=== PATIENT | female | born 1970 | race Hispanic/Latino ===

== ENCOUNTER 2016-07-18 22:09 | Emergency (ER) | payer MEDICAID, OTHER ==
--- NOTE | 2016-07-19 00:32 | XRay Report ---
FINAL REPORT PROCEDURE: XR FOOT 3 RT TECHNIQUE: RIGHT foot radiographs, AP, lateral, and oblique views. CPT 92927 HISTORY: swelling, pain COMPARISON: No prior studies are available for comparison. FINDINGS: Fracture (s) and/or Dislocation(s): None . Alignment: Normal . Joint space(s): Normal . Soft tissues: Normal . Bone mineralization: Normal . Foreign bodies: None . Calcaneal spurring: Large inferior spur. IMPRESSION: There is no evidence of an acute fracture or dislocation.
[2016-07-19 02:56] VITALS: BP 153/85
[2016-07-19] MEDS ORDERED: TORADOL IM ONE (03:07)
[2016-07-19] MEDS ORDERED: NORCO 5/325 PO ONE ×2 (03:07)
--- NOTE | 2016-07-19 03:14 | Emergency Department Report ---
HPI - General Chief Complaint: Extremity Problem,Nontraumatic Time Seen by Provider: 07/19/16 02:58 - HPI HPI: 46-year-old female presents today with right foot pain 1 day. Positive for swelling. Denies injury or trauma. Describes her pain as 10 out of 10 constant ache. Denies numbness, weakness, paresthesias. Patient states that the pain shoots up her leg. Denies fever, chills, nausea, vomiting, chest pain , shortness of breath, abdominal pain. Tried Tylenol No. 3 and ibuprofen without relief, last dose at 8 PM. ED Past Medical Hx - Past Medical History Hx Hypertension: Yes (SINCE 2012) Hx Asthma: Yes Additional medical history: thyroid? - Surgical History Hx Cholecystectomy: Yes Additional Surgical History: Tube ligation - Social History Smoking Status: Current Every Day Smoker Substance Use Type: None - Medications Home Medications: Home Medications Medication Instructions Recorded Confirmed Last Taken Type LORazepam [Ativan] 1 mg PO DAILY 04/13/14 04/29/14 04/28/14 09:00 History Metoprolol [Lopressor TAB] 25 mg PO DAILY 04/13/14 04/29/14 04/29/14 06:00 History HYDROcodone/APAP 10-325 [[place] 1 each PO Q6HR PRN #30 tablet 04/29/14 Unknown Rx 10/325] Ibuprofen [Motrin] 800 mg PO TID PRN #60 tablet 04/29/14 Unknown Rx Acetamin/Codeine 120-12Mg/5 ml 5 ml PO TID PRN #30 ml 07/05/15 Unknown Rx [Tylenol/Codeine] Levofloxacin [Levaquin] 750 mg PO QDAY #10 tablet 07/05/15 Unknown Rx Naproxen [Naprosyn] 500 mg PO BID #30 tablet 07/19/16 Unknown Rx ED Review of Systems ROS: Stated complaint: FOOT PAIN Other details as noted in HPI Constitutional: denies: chills, fever, malaise Eyes: denies: eye pain ENT: denies: ear pain, throat pain, congestion Respiratory: denies: cough, shortness of breath, wheezing Cardiovascular: denies: chest pain, palpitations Endocrine: no symptoms reported Gastrointestinal: denies: abdominal pain, nausea, vomiting Musculoskeletal: joint swelling, arthralgia Neurological: denies: headache, weakness, numbness, paresthesias Physical Exam - Physical Exam Vital Signs: Vital Signs 07/18/16 07/19/16 22:46 02:55 Temperature 98.3 F 98.0 F Pulse Rate 87 81 Respiratory 18 20 Rate Blood Pressure 151/88 Blood Pressure 153/85 [Right] O2 Sat by Pulse 95 96 Oximetry Physical Exam: GENERAL: The patient is well-developed and well-nourished. Patient is in NAD. HEAD: Normocephalic. Atraumatic. CHEST/LUNGS: Clear to auscultation throughout. HEART/CARDIOVASCULAR: Regular rate and rhythm. ABDOMEN: Abdomen is soft, nontender. No guarding or rebound tenderness. RIGHT FOOT: Tenderness to palpation over the mid lateral aspect of right foot. Limited range of motion due to pain. Normal sensation. No change in temperature noted. Peripheral pulses intact. Capillary refill less than 2 seconds. NEURO: Alert and oriented x 3. ED Course Vital Signs 07/18/16 07/19/16 22:46 02:55 Temperature 98.3 F 98.0 F Pulse Rate 87 81 Respiratory 18 20 Rate Blood Pressure 151/88 Blood Pressure 153/85 [Right] O2 Sat by Pulse 95 96 Oximetry ED Medical Decision Making - Lab Data Vital Signs 07/18/16 07/19/16 22:46 02:55 Temperature 98.3 F 98.0 F Pulse Rate 87 81 Respiratory 18 20 Rate Blood Pressure 151/88 Blood Pressure 153/85 [Right] O2 Sat by Pulse 95 96 Oximetry - Radiology Data Radiology results: report reviewed PROCEDURE: XR FOOT 3 RT TECHNIQUE: RIGHT foot radiographs, AP, lateral, and oblique views. CPT 59060 HISTORY: swelling, pain COMPARISON: No prior studies are available for comparison. FINDINGS: Fracture (s) and/or Dislocation(s): None . Alignment: Normal . Joint space(s): Normal . Soft tissues: Normal . Bone mineralization: Normal . Foreign bodies: None . Calcaneal spurring: Large inferior spur. IMPRESSION: There is no evidence of an acute fracture or dislocation. - Medical Decision Making 38-year-old female presents today with right foot pain 1 day. Her x-ray results reveal no evidence of an acute fracture or dislocation, a large inferior calcaneal spur is noted. Patient has been provided with a referral for orthopedic. Patient was given Tyronza and Toradol and reports some symptomatic relief. Patient is in no acute distress at this time. She will be discharged home and is encouraged to follow up with a primary care provider. She will be sent home on Naprosyn and is encouraged to return to the emergency room for any worsening symptoms. Critical care attestation.: If time is entered above; I have spent that time in minutes in the direct care of this critically ill patient, excluding procedure time. ED Disposition Clinical Impression: Foot pain Qualifiers: Laterality: right Qualified Code(s): M79.671 - Pain in right foot Disposition: DISCHARGED TO HOME OR SELFCARE Is pt being admited?: No Does the pt Need Aspirin: No Condition: Stable Instructions: Arthralgia (ED), Foot Sprain (ED) Additional Instructions: Follow-up with primary care provider or orthopedic. Return to the emergency department if symptoms worsen. Prescriptions: Naproxen [Naprosyn] 500 mg PO BID #30 tablet Referrals: MARTHA SCHULZ MD [Primary Care Provider] - 3-5 Days JENNIFER LI MD [Staff Physician] - 3-5 Days [facility] [Outside] - 3-5 Days Forms: Work/School Release Form(ED), Accompanied Note Time of Disposition: 03:16
== END 2016-07-19 03:25 | disposition home or self-care (01) ==
LOC: ED 22:09
DX: M79.671 Pain in right foot (principal); J45.909 Unspecified asthma, uncomplicated; F17.200 Nicotine dependence, unspecified, uncomplicated; Z98.51 Tubal ligation status; I10 Essential (primary) hypertension
CPT/HCPCS: 73630; 96372; 99284; J1885

== ENCOUNTER 2016-10-09 11:58 | Emergency (ER) | payer SELFPAY ==
[2016-10-09 12:28] VITALS: BP 114/77
[2016-10-09] MEDS ORDERED: MORPHINE IM ONE (13:52)
[2016-10-09] MEDS ORDERED: ZOFRAN IM ONE (13:52)
[2016-10-09] MEDS ORDERED: VALIUM PO ONE (13:52)
--- NOTE | 2016-10-09 15:20 | Emergency Department Report ---
ED General Adult HPI - General Chief complaint: Neck Pain/Injury Stated complaint: NECK/HEAD PAIN/UNABLE TO MOVE Time Seen by Provider: 10/09/16 13:51 Source: patient Mode of arrival: Ambulatory Limitations: No Limitations - History of Present Illness Initial comments: 46-year-old female presents to the ED complaining about left-sided neck pain for the past 4 days with unknown injury. Patient states that it is painful to turn her head left but is able to turn her head right. States that she woke up with this pain and is slowly getting worse. Patient denies URI symptoms. States taking [id number] medication with no relief. Severity scale (0 -10): 10 - Related Data Home Medications Medication Instructions Recorded Confirmed Last Taken LORazepam [Ativan] 1 mg PO DAILY 04/13/14 04/29/14 04/28/14 09:00 Metoprolol [Lopressor TAB] 25 mg PO DAILY 04/13/14 04/29/14 04/29/14 06:00 Previous Rx's Medication Instructions Recorded Last Taken Type HYDROcodone/APAP 10-325 [[place] 1 each PO Q6HR PRN #30 tablet 04/29/14 Unknown Rx 10/325] Ibuprofen [Motrin] 800 mg PO TID PRN #60 tablet 04/29/14 Unknown Rx Acetamin/Codeine 120-12Mg/5 ml 5 ml PO TID PRN #30 ml 07/05/15 Unknown Rx [Tylenol/Codeine] Levofloxacin [Levaquin] 750 mg PO QDAY #10 tablet 07/05/15 Unknown Rx Naproxen [Naprosyn] 500 mg PO BID #30 tablet 07/19/16 Unknown Rx Acetaminophen/Codeine [Tylenol 1 tab PO Q6H PRN #10 tab 10/09/16 Unknown Rx /Codeine # 3 tab] Diclofenac Sodium 75 mg PO BID #20 tablet. 10/09/16 Unknown Rx Tizanidine HCl [Zanaflex] 2 mg PO TID PRN #14 capsule 10/09/16 Unknown Rx Allergies Allergy/AdvReac Type Severity Reaction Status Date / Time Penicillins AdvReac Unknown Unknown Verified 04/13/14 15:43 ED Review of Systems ROS: Stated complaint: NECK/HEAD PAIN/UNABLE TO MOVE Other details as noted in HPI Constitutional: denies: chills, fever Eyes: denies: eye pain, eye discharge, vision change ENT: denies: ear pain, throat pain Respiratory: denies: cough, shortness of breath, wheezing Cardiovascular: denies: chest pain, palpitations Endocrine: no symptoms reported Gastrointestinal: denies: abdominal pain, nausea, diarrhea Genitourinary: denies: urgency, dysuria, discharge Musculoskeletal: myalgia. denies: back pain, joint swelling, arthralgia Skin: denies: rash, lesions Neurological: denies: headache, weakness, paresthesias Psychiatric: denies: anxiety, depression Hematological/Lymphatic: denies: easy bleeding, easy bruising ED Past Medical Hx - Past Medical History Hx Hypertension: Yes (SINCE 2012) Hx Asthma: Yes Additional medical history: thyroid? - Surgical History Hx Cholecystectomy: Yes Additional Surgical History: Tube ligation - Social History Smoking Status: Current Every Day Smoker Substance Use Type: None - Medications Home Medications: Home Medications Medication Instructions Recorded Confirmed Last Taken Type LORazepam [Ativan] 1 mg PO DAILY 04/13/14 04/29/14 04/28/14 09:00 History Metoprolol [Lopressor TAB] 25 mg PO DAILY 04/13/14 04/29/14 04/29/14 06:00 History HYDROcodone/APAP 10-325 [[place] 1 each PO Q6HR PRN #30 tablet 04/29/14 Unknown Rx 10/325] Ibuprofen [Motrin] 800 mg PO TID PRN #60 tablet 04/29/14 Unknown Rx Acetamin/Codeine 120-12Mg/5 ml 5 ml PO TID PRN #30 ml 07/05/15 Unknown Rx [Tylenol/Codeine] Levofloxacin [Levaquin] 750 mg PO QDAY #10 tablet 07/05/15 Unknown Rx Naproxen [Naprosyn] 500 mg PO BID #30 tablet 07/19/16 Unknown Rx Acetaminophen/Codeine [Tylenol 1 tab PO Q6H PRN #10 tab 10/09/16 Unknown Rx /Codeine # 3 tab] Diclofenac Sodium 75 mg PO BID #20 tablet. 10/09/16 Unknown Rx Tizanidine HCl [Zanaflex] 2 mg PO TID PRN #14 capsule 10/09/16 Unknown Rx ED Physical Exam - General Limitations: No Limitations General appearance: alert, in no apparent distress - Head Head exam: Present: atraumatic, normocephalic - Eye Eye exam: Present: normal appearance - ENT ENT exam: Present: mucous membranes moist - Neck Neck exam: Present: normal inspection, tenderness (point tenderness to the left cervical region), other (patient able to rotate her head right freely but unable to turn her head left). Absent: meningismus, full ROM - Respiratory Respiratory exam: Present: normal lung sounds bilaterally. Absent: respiratory distress - Cardiovascular Cardiovascular Exam: Present: regular rate, normal rhythm. Absent: systolic murmur, diastolic murmur, rubs, gallop - GI/Abdominal GI/Abdominal exam: Present: soft, normal bowel sounds - Extremities Exam Extremities exam: Present: normal inspection - Back Exam Back exam: Present: normal inspection - Neurological Exam Neurological exam: Present: alert, oriented X3 - Psychiatric Psychiatric exam: Present: normal affect, normal mood - Skin Skin exam: Present: warm, dry, intact, normal color. Absent: rash ED Course Vital Signs 10/09/16 10/09/16 12:23 14:15 Temperature 98.0 F Pulse Rate 87 Respiratory 17 22 Rate Blood Pressure 114/77 O2 Sat by Pulse 94 Oximetry ED Medical Decision Making - Lab Data Vital Signs 10/09/16 10/09/16 12:23 14:15 Temperature 98.0 F Pulse Rate 87 Respiratory 17 22 Rate Blood Pressure 114/77 O2 Sat by Pulse 94 Oximetry - Medical Decision Making Patient is resting comfortable at this time. Patient able to turn her head left and right after morphine and Valium. Patient's symptoms most correlate with torticollis - Differential Diagnosis meningitis Critical care attestation.: If time is entered above; I have spent that time in minutes in the direct care of this critically ill patient, excluding procedure time. ED Disposition Clinical Impression: Acute torticollis Disposition: DISCHARGED TO HOME OR SELFCARE Is pt being admited?: No Does the pt Need Aspirin: No Condition: Good Instructions: Spasmodic Torticollis (ED) Additional Instructions: Alternate ice and heat 20 minutes on 20 minutes off. Take medication as prescribed. Follow-up with orthopedist. Prescriptions: Acetaminophen/Codeine [Tylenol /Codeine # 3 tab] 1 tab PO Q6H PRN #10 tab PRN Reason: Pain Diclofenac Sodium 75 mg PO BID #20 tablet. Tizanidine HCl [Zanaflex] 2 mg PO TID PRN #14 capsule PRN Reason: Muscle Spasm Referrals: PRIMARY CARE, [Primary Care Provider] - 3-5 Days KAY VILLALBA MD [Staff Physician] - 3-5 Days Forms: Work/School Release Form(ED) Time of Disposition: 15:20
== END 2016-10-09 15:48 | disposition home or self-care (01) ==
LOC: ED 11:58
DX: M43.6 Torticollis (principal); I10 Essential (primary) hypertension; J45.909 Unspecified asthma, uncomplicated; F17.200 Nicotine dependence, unspecified, uncomplicated
CPT/HCPCS: 96372; 99282; J2270; J2405

== ENCOUNTER 2017-09-09 21:00 | Emergency (ER) | payer SELFPAY ==
[2017-09-09 22:14] LABS: Bilirubin,Urine NEG (Negative); Blood,Urine NEG (Negative); Color,Urine Yellow (Yellow); Mucus,Urine FEW /HPF; Protein,Urine <15 mg/dL mg/dL (Negative); RBC,Urine < 1.0 /HPF (0.0-6.0); Urobilinogen,Urine < 2.0 mg/dL (<2.0); WBC,Urine < 1.0 /HPF (0.0-6.0)
[2017-09-10] MEDS ORDERED: PERCOCET 5/325 ONE (04:28)
[2017-09-10] MEDS ORDERED: PERCOCET 5/325 PO ONE (04:30)
--- NOTE | 2017-09-10 05:21 | Emergency Department Report ---
ED Back Pain/Injury HPI - General Chief Complaint: Urogenital-Female Stated Complaint: ABDOMINAL PAIN Time Seen by Provider: 09/10/17 05:19 Source: patient, family Limitations: No Limitations - History of Present Illness Initial Comments: Patient reports that she has right flank pain radiating to her back. She reports she has no urinary changes to include darker and stronger odor. Denies any nausea vomiting or diarrhea. Denies any abdominal pain. Denies any fever or chills. Denies any vaginal bleeding. Denies any vaginal discharge. Denies any chest pain or shortness of breath. Patient has a history of asthma, hypertension and she is morbidly obese. She has a history of gallbladder surgery and tubal ligation in the past. Patient says she has a history of slipped disc and she thinks that when she was picking up a child 3 days ago this was triggered her back started hurting. Denies any history of kidney stones or any blood in her urine. Blood pressure is 172/100 and patient is on medication. She says when she is in pain her blood pressure goes up. Pain is 10 out of 10 located to the right flank area. Patient said it feels like spasms she's had in the past. Denies any radiation of pain to her extremities. Denies any loss of bowel or bladder control. She says she took Tylenol and it didn't help her pain so she came to the emergency room. Complaint: back pain Onset/Timin -: days(s) Similar Symptoms Previously: Yes Place: home Radiation: flank Severity: severe Severity scale (0 -10): 10 Quality: aching, other (spasm) Consistency: intermittent Improves With: immobilization Worsens With: movement, walking Context: while lifting Associated Symptoms: other (ports that her urine has a strong odor and it is darker.). denies: confusion, weakness, chest pain, numbness, difficulty walking , cough, difficulty urinating, diaphoresis, incontinence, fever/chills, constipation, headaches, abdominal pain, loss of appetite, malaise, nausea/ vomiting, rash, seizure, shortness of breath, syncope Treatments Prior to Arrival: acetaminophen - Related Data Home Medications Medication Instructions Recorded Confirmed Last Taken LORazepam [Ativan] 1 mg PO DAILY 04/13/14 04/29/14 04/28/14 09:00 Metoprolol [Lopressor TAB] 25 mg PO DAILY 04/13/14 04/29/14 04/29/14 06:00 Previous Rx's Medication Instructions Recorded Last Taken Type HYDROcodone/APAP 10-325 [[place] 1 each PO Q6HR PRN #30 tablet 04/29/14 Unknown Rx 10/325] Ibuprofen [Motrin] 800 mg PO TID PRN #60 tablet 04/29/14 Unknown Rx Acetamin/Codeine 120-12Mg/5 ml 5 ml PO TID PRN #30 ml 07/05/15 Unknown Rx [Tylenol/Codeine] Levofloxacin [Levaquin] 750 mg PO QDAY #10 tablet 07/05/15 Unknown Rx Naproxen [Naprosyn] 500 mg PO BID #30 tablet 07/19/16 Unknown Rx Acetaminophen/Codeine [Tylenol 1 tab PO Q6H PRN #10 tab 10/09/16 Unknown Rx /Codeine # 3 tab] Diclofenac Sodium 75 mg PO BID #20 tablet. 10/09/16 Unknown Rx Tizanidine HCl [Zanaflex] 2 mg PO TID PRN #14 capsule 10/09/16 Unknown Rx Cyclobenzaprine [Flexeril] 10 mg PO TID PRN #12 tablet 09/10/17 Unknown Rx Ibuprofen [Motrin] 600 mg PO Q8H PRN #12 tablet 09/10/17 Unknown Rx Allergies Allergy/AdvReac Type Severity Reaction Status Date / Time Penicillins AdvReac Unknown Unknown Verified 04/13/14 15:43 morphine AdvReac Anaphylaxis Verified 09/09/17 21:17 ED Review of Systems ROS: Stated complaint: ABDOMINAL PAIN Other details as noted in HPI Comment: All other systems reviewed and negative Constitutional: no symptoms reported Eyes: denies: eye pain, vision change ENT: denies: throat pain, epistaxis Respiratory: no symptoms reported Cardiovascular: denies: chest pain, palpitations, dyspnea on exertion, edema, syncope, paroxysmal nocturnal dyspnea Gastrointestinal: denies: abdominal pain, nausea, vomiting, diarrhea, constipation, hematemesis, melena, hematochezia Genitourinary: other (urine with stronger order a darker). denies: urgency, dysuria, frequency, hematuria, discharge Musculoskeletal: back pain. denies: joint swelling, arthralgia, myalgia Skin: denies: rash Neurological: denies: headache, weakness, numbness, paresthesias, confusion, abnormal gait, vertigo ED Past Medical Hx - Past Medical History Medical history: asthma, hypertension thyroid?,pt intubated at [facility] 12/21/2016 when they overdosed her on morphine. Chronic lower back pain. 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 No distress. Alert and acting appropriately. This is a 47-year-old morbidly obese female. Nontoxic in appearance. Lungs: Clear to auscultation bilaterally, no rhonchi wheezes or rales. Skin:Clean,dry and intact, no rashes or lesion. CV: S1, S2. Regular rate and rhythm Extremity: No clubbing, cyanosis or edema. +2 pulses to all extremities and no neurovascular compromise Psych: Normal mood and behavior. Back/Abdomen: Yes Abdominal Tenderness (NTTP in all quadrants. normal bowel sounds. Truncal obesity. No rigidity), No Perithoracic Tenderness, No Perilumbar Tenderness (left lumbar spasm), No Sacroiliac Tenderness, No Flank Tenderness, No Straight Leg Raise Pain Neuro: Yes Normal Sensation, Yes Normal DTR's, Yes Normal Gait, No Motor Weakness ED Course Vital Signs 09/09/17 21:10 Temperature 98.8 F Pulse Rate 86 Respiratory 18 Rate Blood Pressure 172/100 O2 Sat by Pulse 100 Oximetry - Reevaluation(s) Reevaluation #1: 09/10/17 05:36 Patient given Percocet 5/325 mg 2 tablet by mouth which she said helped her pain. She was given Flexeril 10 mg by mouth. Ed Back Pain Tests - Tests Tests: Normal UA ED Medical Decision Making - Lab Data Lab Results 09/09/17 Range/Units Unknown Urine Color Yellow (Yellow) Urine Turbidity Clear (Clear) Urine pH 7.0 (5.0-7.0) Ur Specific [place] 1.020 (1.003-1.030) Urine Protein <15 mg/dl (Negative) mg/dL Urine Glucose (UA) Neg (Negative) mg/dL Urine Ketones Neg (Negative) mg/dL Urine Blood Neg (Negative) Urine Nitrite Neg (Negative) Urine Bilirubin Neg (Negative) Urine Urobilinogen < 2.0 (<2.0) mg/dL Ur Leukocyte Esterase Neg (Negative) Urine WBC (Auto) < 1.0 (0.0-6.0) /HPF Urine RBC (Auto) < 1.0 (0.0-6.0) /HPF U Epithel Cells (Auto) 4.0 (0-13.0) /HPF Urine Mucus Few /HPF - Medical Decision Making ED course: Patient here complaining of left flank pain. She relates that to either urinary tract infection or probably from lifting a child 3 days ago. She said it feels spasm and achy. Physical findings for left lumbar spasm. Urinalysis negative for any infection.Her urine was clear and yellow. Specific gravity is stable. I discussed results with patient and also with diagnosis and treatment plan. Patient was given Percocet 5/325 2 tablets in the emergency room and Flexeril 10 mg for relief of pain. She has a history of chronic back pain with flare up from time to time which included spasm. Neurological exam is normal and her back exam is normal except she has left lumbar spasm without any CVA tenderness. Patient discharged home with prescription for Flexeril and Motrin and to follow-up with her primary care physician and 2-3 days. I discussed with her she doesn't have a primary care physician that she needs follow-up with outside [facility] Center. Her blood pressure was 170/100 and I discussed with her that she needs to keep a log of her blood pressure and take to primary care physician for evaluation. Critical care attestation.: If time is entered above; I have spent that time in minutes in the direct care of this critically ill patient, excluding procedure time. ED Disposition Clinical Impression: Spasm of muscle of lower back, Acute exacerbation of chronic low back pain, Morbid obesity with BMI of 40.0-44.9, adult Disposition: - TO HOME OR SELFCARE Is pt being admited?: No Does the pt Need Aspirin: No Condition: Stable Instructions: Back Pain (ED), Muscle Spasm (ED), Weight Management (ED), Obesity (ED) Additional Instructions: Please see discharge instructions for management of back pain and also weight loss instructions. Increasing her fluid intake. Please do not drive or operate heavy machinery while taking Flexeril as this medication causes drowsiness Follow-up with orthopedic doctor for chronic back pain "Follow[facility]up at [facility] for primary care. Prescriptions: Cyclobenzaprine [Flexeril] 10 mg PO TID PRN #12 tablet PRN Reason: Muscle Spasm Ibuprofen [Motrin] 600 mg PO Q8H PRN #12 tablet PRN Reason: Pain Referrals: [facility] [Outside] - 09/12/17 KAY VILLALBA MD [Staff Physician] - 2-3 Days Forms: Work/School Release Form(ED)
[2017-09-10] MEDS ORDERED: FLEXERIL PO ONE (05:26)
[2017-09-10 06:18] VITALS: BP 173/87
== END 2017-09-10 05:55 | disposition home or self-care (01) ==
LOC: ED 21:00
DX: M54.5 Low back pain (principal); G89.29 Other chronic pain; M62.830 Muscle spasm of back; E66.01 Morbid (severe) obesity due to excess calories; J45.909 Unspecified asthma, uncomplicated; I10 Essential (primary) hypertension; Z90.49 Acquired absence of other specified parts of digestive tract; Z68.41 Body mass index [BMI] 40.0-44.9, adult; Z98.51 Tubal ligation status; Z88.0 Allergy status to penicillin; Z88.5 Allergy status to narcotic agent
CPT/HCPCS: 81001; 99283

== ENCOUNTER 2017-11-12 08:45 | Outpatient (CLI) | payer OTHER ==
[2017-11-12] MEDS ORDERED: PROVENTIL IH ONE (09:55)
== END 2017-11-12 08:46 | disposition home or self-care (01) ==
LOC: PF 08:45
PROVIDERS: ATTEND Internal Medicine
DX: Z02.71 Encounter for disability determination (principal); F41.9 Anxiety disorder, unspecified; I10 Essential (primary) hypertension; E78.00 Pure hypercholesterolemia, unspecified; G47.30 Sleep apnea, unspecified; G43.909 Migraine, unspecified, not intractable, without status migrainosus
CPT/HCPCS: 94060; 94640; 94729

== ENCOUNTER 2018-10-04 20:36 | Emergency (ER) | payer OTHER ==
[2018-10-04 21:15] VITALS: BP 111/72
--- NOTE | 2018-10-04 22:05 | Emergency Department Report ---
Blank Doc - Documentation Documentation: 48 y/o female chest pain, with left arm tingling and recently dx with diabetes. SOB
[2018-10-04 22:18] LABS: Basophils # (Auto) 0.1 K/mm3 (0.0-0.1); Eosinophils # (Auto) 0.4 K/mm3 (0.0-0.4); Eosinophils % (Auto) 2.9 % (0.0-4.3); Hematocrit 52.1 % (30.3-42.9); Hemoglobin 17.6 gm/dl (10.1-14.3); Lymphocytes # (Auto) 2.7 K/mm3 (1.2-5.4); Lymphocytes % (Auto) 22.2 % (13.4-35.0); Mean Corpuscular HGB Conc 34 % (30-34); Mean Corpuscular Volume 96 fl (79-97); Monocytes # (Auto) 0.5 K/mm3 (0.0-0.8); Monocytes % (Auto) 4.1 % (0.0-7.3); Platelet Count 202 K/mm3 (140-440); Red Blood Count 5.41 M/mm3 (3.65-5.03); Red Cell Distribution Width 15.7 % (13.2-15.2)
[2018-10-04 22:40] LABS: Alanine Aminotransferase 29 units/L (7-56); Albumin 3.8 g/dL (3.9-5); BUN/Creatinine Ratio 15; Blood Urea Nitrogen 12 mg/dL (7-17); Calcium 9.9 mg/dL (8.4-10.2); Hemolysis Index 15
--- NOTE | 2018-10-04 23:05 | XRay Report ---
PROCEDURE: XR CHEST ROUTINE 2V TECHNIQUE: PA and lateral chest radiographs were obtained. HISTORY: chest pain and sob COMPARISONS: None. FINDINGS: Heart: Normal. Mediastinum/Vessels: Normal. Lungs/Pleural space: Normal. Bony thorax: No acute osseous abnormality. Degenerative change. IMPRESSION: No acute cardiopulmonary disease. This document is electronically signed by Nhan Tyler MD., Oct 04 2018 11:03:27 PM ET
== END 2018-10-05 01:17 ==
LOC: ED 20:36
DX: R07.89 Other chest pain (principal); Z53.21 Procedure and treatment not carried out due to patient leaving prior to being seen by health care provider
CPT/HCPCS: 36415; 71046; 80053; 84484; 85025; 93005; 93010

== ENCOUNTER 2018-12-04 08:36 | Emergency (ER) | payer SELFPAY ==
[2018-12-04 08:46] VITALS: BP 127/81
[2018-12-04] MEDS ORDERED: TORADOL IM ONE (09:13)
[2018-12-04] MEDS ORDERED: DELTASONE PO ONE (09:13)
--- NOTE | 2018-12-04 09:18 | Emergency Department Report ---
ED ENT HPI - General Chief complaint: Earache Stated complaint: RT EAR PAIN Time Seen by Provider: 12/04/18 09:12 Source: patient Mode of arrival: Ambulatory Limitations: No Limitations - History of Present Illness Initial comments: 48-year-old female comes in for throat pain and ear pain for 2 days. Patient reports that she took an Aleve yesterday. Patient denies any fever chills nausea vomiting. Patient denies any runny nose nasal congestion chest pain shortness of breathing. Patient does complain of difficulty swallowing and worsening pain with swallowing. MD complaint: tooth pain, ear pain Onset/Timin -: days(s) Location: R ear, throat Severity scale (0 -10): 9 Quality: stabbing, sharp Consistency: constant Improves with: none Worsens with: swallowing Associated Symptoms: pain with swallowing, sore throat. denies: fever, cough, gum swelling, toothache, tinnitus, hearing loss, discharge from ear, rhinorrhea - Related Data Home Medications Medication Instructions Recorded Confirmed Last Taken Metoprolol [Lopressor TAB] 25 mg PO DAILY 04/13/14 04/29/14 04/29/14 06:00 Previous Rx's Medication Instructions Recorded Last Taken Type Azithromycin [Zithromax Z-MARIEL] 250 mg PO QDAY #6 tablet 12/04/18 Unknown Rx Ibuprofen [Motrin 800 MG tab] 800 mg PO Q12H PRN #20 tablet 12/04/18 Unknown Rx predniSONE [Deltasone] 40 mg PO QDAY #8 tablet 12/04/18 Unknown Rx Allergies Allergy/AdvReac Type Severity Reaction Status Date / Time Penicillins AdvReac Unknown Unknown Verified 04/13/14 15:43 morphine AdvReac Anaphylaxis Verified 09/09/17 21:17 ED Dental HPI - General Chief complaint: Earache Stated complaint: RT EAR PAIN Time Seen by Provider: 12/04/18 09:12 Source: patient Mode of arrival: Ambulatory Limitations: No Limitations - Related Data Home Medications Medication Instructions Recorded Confirmed Last Taken Metoprolol [Lopressor TAB] 25 mg PO DAILY 04/13/14 04/29/14 04/29/14 06:00 Previous Rx's Medication Instructions Recorded Last Taken Type Azithromycin [Zithromax Z-MARIEL] 250 mg PO QDAY #6 tablet 12/04/18 Unknown Rx Ibuprofen [Motrin 800 MG tab] 800 mg PO Q12H PRN #20 tablet 12/04/18 Unknown Rx predniSONE [Deltasone] 40 mg PO QDAY #8 tablet 12/04/18 Unknown Rx Allergies Allergy/AdvReac Type Severity Reaction Status Date / Time Penicillins AdvReac Unknown Unknown Verified 04/13/14 15:43 morphine AdvReac Anaphylaxis Verified 09/09/17 21:17 ED Review of Systems ROS: Stated complaint: RT EAR PAIN Other details as noted in HPI Comment: All other systems reviewed and negative ED Past Medical Hx - Past Medical History Previous Medical History?: Yes Hx Hypertension: Yes (SINCE 2012) Hx Asthma: Yes Hx COPD: Yes Additional medical history: thyroid?,pt intubated at [facility] 12/21/2016 when they overdosed her on morphine. Chronic lower back pain. Morbid obesity - Surgical History Past Surgical History?: Yes Hx Cholecystectomy: Yes Additional Surgical History: Tube ligation,ablasion - Social History Smoking Status: Current Every Day Smoker Substance Use Type: None - Medications Home Medications: Home Medications Medication Instructions Recorded Confirmed Last Taken Type Metoprolol [Lopressor TAB] 25 mg PO DAILY 04/13/14 04/29/14 04/29/14 06:00 History Azithromycin [Zithromax Z-MARIEL] 250 mg PO QDAY #6 tablet 12/04/18 Unknown Rx Ibuprofen [Motrin 800 MG tab] 800 mg PO Q12H PRN #20 tablet 12/04/18 Unknown Rx predniSONE [Deltasone] 40 mg PO QDAY #8 tablet 12/04/18 Unknown Rx ED Physical Exam - General Limitations: No Limitations General appearance: alert, in no apparent distress - Head Head exam: Present: atraumatic, normocephalic - Eye Eye exam: Present: normal appearance - ENT ENT exam: Present: mucous membranes moist - Expanded ENT Exam Expanded Throat exam: Positive: tonsillar erythema, tonsillomegaly - Respiratory Respiratory exam: Present: normal lung sounds bilaterally. Absent: respiratory distress - Cardiovascular Cardiovascular Exam: Present: regular rate, normal rhythm. Absent: systolic murmur, diastolic murmur, rubs, gallop - Neurological Exam Neurological exam: Present: alert, oriented X3 - Psychiatric Psychiatric exam: Present: normal affect, normal mood - Skin Skin exam: Present: warm, dry, intact, normal color. Absent: rash ED Course Vital Signs 12/04/18 08:45 Temperature 97.9 F Pulse Rate 93 H Respiratory 18 Rate Blood Pressure 127/81 [Right] O2 Sat by Pulse 91 Oximetry ED Medical Decision Making - Medical Decision Making 48-year-old female comes in for sore throat and bilateral ear pain right ear worse. Patient reports difficult to swallowing. Patient be given Toradol injection 30 mg prednisone 40 mg patient be discharged home on azithromycin since patient has a penicillin allergy and ibuprofen. Patient to follow-up to primary care provider for symptoms persist or gets worse. Critical care attestation.: If time is entered above; I have spent that time in minutes in the direct care of this critically ill patient, excluding procedure time. ED Disposition Clinical Impression: Sore throat Disposition: DC-01 TO HOME OR SELFCARE Is pt being admited?: No Does the pt Need Aspirin: No Condition: Stable Instructions: Pharyngitis (ED) Additional Instructions: Treatment antibiotics as prescribed take pain medication as needed take steroids as prescribed. Follow-up primary care provider for some persist or gets worse. Prescriptions: predniSONE [Deltasone] 40 mg PO QDAY #8 tablet Ibuprofen [Motrin 800 MG tab] 800 mg PO Q12H PRN #20 tablet PRN Reason: Pain , Severe (7-10) Azithromycin [Zithromax Z-MARIEL] 250 mg PO QDAY #6 tablet Referrals: JAZMIN SALAZAR MD [Primary Care Provider] - 3-5 Days Forms: Work/School Release Form(ED)
== END 2018-12-04 09:41 | disposition home or self-care (01) ==
LOC: ED 08:36
DX: J02.9 Acute pharyngitis, unspecified (principal); H92.03 Otalgia, bilateral; I10 Essential (primary) hypertension; J44.9 Chronic obstructive pulmonary disease, unspecified; F17.200 Nicotine dependence, unspecified, uncomplicated; Z98.51 Tubal ligation status; Z90.49 Acquired absence of other specified parts of digestive tract; Z88.0 Allergy status to penicillin; Z88.5 Allergy status to narcotic agent
CPT/HCPCS: J1885; J7512; 96372

== ENCOUNTER 2019-02-02 12:38 | Emergency (ER) | payer OTHER ==
[2019-02-02 12:44] VITALS: BP 145/87
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
[2019-02-02] MEDS ORDERED: FLEXERIL PO ONE (13:05)
[2019-02-02] MEDS ORDERED: TORADOL PO ONE (13:05)
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
== END 2019-02-02 13:45 | disposition home or self-care (01) ==
LOC: ED 12:38
DX: S16.1XXA Strain of muscle, fascia and tendon at neck level, initial encounter (principal); R51 Headache; I10 Essential (primary) hypertension; J44.9 Chronic obstructive pulmonary disease, unspecified; F17.200 Nicotine dependence, unspecified, uncomplicated; Z90.49 Acquired absence of other specified parts of digestive tract; Z98.51 Tubal ligation status; Z79.899 Other long term (current) drug therapy; Z88.0 Allergy status to penicillin; Z88.6 Allergy status to analgesic agent; V49.49XA Driver injured in collision with other motor vehicles in traffic accident, initial encounter; Y93.89 Activity, other specified; Y92.410 Unspecified street and highway as the place of occurrence of the external cause; Y99.8 Other external cause status
CPT/HCPCS: 72040

== ENCOUNTER 2020-06-13 19:02 | Emergency (ER) | payer SELFPAY ==
[2020-06-13 19:54] VITALS: BP 147/85
[2020-06-13] MEDS ORDERED: predniSONE 20 MG TAB PO ONE (20:14)
[2020-06-13] MEDS ORDERED: KETOROLAC 60 MG/2 ML INJ IM ONE (20:14)
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
== END 2020-06-13 22:09 | disposition home or self-care (01) ==
LOC: ED 19:02
DX: S16.1XXA Strain of muscle, fascia and tendon at neck level, initial encounter (principal); I10 Essential (primary) hypertension; J44.9 Chronic obstructive pulmonary disease, unspecified; Z88.0 Allergy status to penicillin; Z88.6 Allergy status to analgesic agent; Z79.899 Other long term (current) drug therapy; Z90.49 Acquired absence of other specified parts of digestive tract; Z98.890 Other specified postprocedural states; Z98.51 Tubal ligation status; X58.XXXA Exposure to other specified factors, initial encounter; Y93.89 Activity, other specified; Y92.89 Other specified places as the place of occurrence of the external cause; Y99.8 Other external cause status
CPT/HCPCS: 96372; 99282; J1885; J7512

== ENCOUNTER 2020-06-24 19:21 | Emergency (ER) | payer SELFPAY ==
[2020-06-24] MEDS ORDERED: KETOROLAC 60 MG/2 ML INJ IM ONE (21:53)
[2020-06-24] MEDS ORDERED: dexAMETHasone 20 MG/5 ML VIAL IM ONE (21:53)
--- NOTE | 2020-06-24 21:58 | Emergency Department Report ---
ED Neck Pain/Injury HPI - General Chief Complaint: Neck Pain/Injury Stated Complaint: CHEST PAIN/LEFT SIDE SHOULDER PAIN Time Seen by Provider: 06/24/20 21:48 Mode of arrival: Ambulatory Limitations: No Limitations - History of Present Illness Initial Comments: Patient is a 50-year-old female who is presenting with left neck pain radiating to her left upper extremity. States it is a burning sensation and is estimated at 8 out of 10 in severity. States that it is affecting her left forearm and as well as the deltoid. Is worse with movement better with rest. She denies any injury. Patient was here 2 weeks ago for the same complaint but states that the Flexeril that was given does not work. - Related Data Home Medications Medication Instructions Recorded Confirmed Last Taken Metoprolol [Lopressor TAB] 25 mg PO DAILY 04/13/14 04/29/14 04/29/14 06:00 Previous Rx's Medication Instructions Recorded Last Taken Type Azithromycin [Zithromax Z-MARIEL] 250 mg PO QDAY #6 tablet 12/04/18 Unknown Rx predniSONE [Deltasone] 40 mg PO QDAY #8 tablet 12/04/18 Unknown Rx Cyclobenzaprine [Flexeril] 10 mg PO QHS PRN #7 tablet 02/02/19 Unknown Rx Ibuprofen [Motrin 800 MG tab] 800 mg PO Q8HR PRN #14 tablet 02/02/19 Unknown Rx Cyclobenzaprine [Flexeril] 10 mg PO QHS PRN #10 tablet 06/13/20 Unknown Rx Naproxen 500 mg PO Q12H PRN #12 tablet 06/13/20 Unknown Rx Ketorolac [Toradol] 10 mg PO Q6H PRN #12 tablet 06/24/20 Unknown Rx methOCARBAMOL [Robaxin TAB] 500 mg PO Q6H PRN #14 tablet 06/24/20 Unknown Rx Allergies Allergy/AdvReac Type Severity Reaction Status Date / Time Penicillins AdvReac Unknown Unknown Verified 04/13/14 15:43 morphine AdvReac Anaphylaxis Verified 09/09/17 21:17 ED Review of Systems ROS: Stated complaint: CHEST PAIN/LEFT SIDE SHOULDER PAIN Other details as noted in HPI Comment: All other systems reviewed and negative ED Past Medical Hx - Past Medical History Previous Medical History?: Yes Hx Hypertension: Yes (SINCE 2012) Hx Asthma: Yes Hx COPD: Yes Additional medical history: thyroid?,pt intubated at [facility] 12/21/2016 when they overdosed her on morphine. Chronic lower back pain. Morbid obesity - Surgical History Past Surgical History?: Yes Hx Cholecystectomy: Yes Additional Surgical History: Tube ligation,uterine ablasion - Social History Smoking Status: Former Smoker Substance Use Type: None - Medications Home Medications: Home Medications Medication Instructions Recorded Confirmed Last Taken Type Metoprolol [Lopressor TAB] 25 mg PO DAILY 04/13/14 04/29/14 04/29/14 06:00 History Azithromycin [Zithromax Z-MARIEL] 250 mg PO QDAY #6 tablet 12/04/18 Unknown Rx predniSONE [Deltasone] 40 mg PO QDAY #8 tablet 12/04/18 Unknown Rx Cyclobenzaprine [Flexeril] 10 mg PO QHS PRN #7 tablet 02/02/19 Unknown Rx Ibuprofen [Motrin 800 MG tab] 800 mg PO Q8HR PRN #14 tablet 02/02/19 Unknown Rx Cyclobenzaprine [Flexeril] 10 mg PO QHS PRN #10 tablet 06/13/20 Unknown Rx Naproxen 500 mg PO Q12H PRN #12 tablet 06/13/20 Unknown Rx Ketorolac [Toradol] 10 mg PO Q6H PRN #12 tablet 06/24/20 Unknown Rx methOCARBAMOL [Robaxin TAB] 500 mg PO Q6H PRN #14 tablet 06/24/20 Unknown Rx ED Physical Exam - General Limitations: No Limitations General appearance: alert, in no apparent distress - Head Head exam: Present: atraumatic, normocephalic - Eye Eye exam: Present: normal appearance - ENT ENT exam: Present: mucous membranes moist - Neck Neck exam: Present: normal inspection, tenderness (left sided without swelling). Absent: lymphadenopathy - Respiratory Respiratory exam: Present: normal lung sounds bilaterally. Absent: respiratory distress, wheezes, rales, rhonchi - Cardiovascular Cardiovascular Exam: Present: regular rate, normal rhythm. Absent: systolic murmur, diastolic murmur, rubs, gallop - GI/Abdominal GI/Abdominal exam: Present: soft, normal bowel sounds - Extremities Exam Extremities exam: Present: normal inspection - Back Exam Back exam: Present: normal inspection - Neurological Exam Neurological exam: Present: alert, oriented X3 - Psychiatric Psychiatric exam: Present: normal affect, normal mood - Skin Skin exam: Present: warm, dry, intact, normal color. Absent: rash ED Course Vital Signs 06/24/20 20:41 Temperature 98.1 F Pulse Rate 129 H Respiratory 18 Rate Blood Pressure 141/105 O2 Sat by Pulse 92 Oximetry ED Medical Decision Making - Medical Decision Making Patient with classic symptoms of radiculopathy. Patient to be given a shot of Decadron and will be discharged home with medication for symptomatic relief follow-up with [facility] Critical care attestation.: If time is entered above; I have spent that time in minutes in the direct care of this critically ill patient, excluding procedure time. ED Disposition Clinical Impression: Cervical radiculopathy Disposition: - TO HOME OR SELFCARE Is pt being admited?: No Does the pt Need Aspirin: No Condition: Stable Instructions: Cervical Radiculopathy, How to Use Cold Therapy Referrals: OPAL GOMEZ II, MD [Staff Physician] - 3-5 Days Time of Disposition: 21:58
[2020-06-24 22:13] VITALS: BP 132/94
--- NOTE | 2020-06-24 22:53 | XRay Report ---
CHEST 2 VIEWS INDICATION / CLINICAL INFORMATION: CHEST PAIN. COMPARISON: 10/04/2018 FINDINGS: SUPPORT DEVICES: None. HEART / MEDIASTINUM: No significant abnormality. LUNGS / PLEURA: No significant pulmonary or pleural abnormality. No pneumothorax. ADDITIONAL FINDINGS: No significant additional findings. IMPRESSION: 1. No acute findings. No significant interval change since 10/04/2018. Signer Name: Jason Murdock MD Signed: 06/24/2020 10:48 PM Workstation Name: [id number]
== END 2020-06-24 22:30 | disposition home or self-care (01) ==
LOC: ED 19:21
DX: M54.12 Radiculopathy, cervical region (principal); I10 Essential (primary) hypertension; J45.909 Unspecified asthma, uncomplicated; J44.9 Chronic obstructive pulmonary disease, unspecified; Z90.49 Acquired absence of other specified parts of digestive tract; Z98.51 Tubal ligation status; Z87.891 Personal history of nicotine dependence; Z79.899 Other long term (current) drug therapy; Z88.0 Allergy status to penicillin; Z88.6 Allergy status to analgesic agent
CPT/HCPCS: 71046; 96372; 99283; J1100; J1885

== ENCOUNTER 2021-08-17 12:56 | Emergency (ER) | payer OTHER ==
[2021-08-17] MEDS ORDERED: diphenhydrAMINE 25 MG CAP PO ONE (17:38)
[2021-08-17] MEDS ORDERED: METOCLOPRAMIDE 10 MG TAB PO ONE (17:38)
[2021-08-17] MEDS ORDERED: DEXAMETHASONE 4 MG TAB PO ONE (17:38)
[2021-08-17] MEDS ORDERED: KETOROLAC 10 MG TAB PO ONE (17:38)
--- NOTE | 2021-08-17 18:56 | Emergency Department Report ---
ED Headache HPI - General Chief Complaint: Headache Stated Complaint: SWOLLEN HANDS AND HEADACHE Time Seen by Provider: 08/17/21 17:31 - History of Present Illness Initial Comments: 51-year-old white female with a past medical history of hypertension, diabetes, and hypothyroidism presents to the emergency department for evaluation of headache. She states that she woke up this morning with a headache and some neck pain. She denies injury, vomiting, vision changes, and dizziness. She states that she has had some intermittent nausea today along with some photophobia. She also complains of intermittent swelling to her hands for the past 2 to 3 days. She denies any abdominal swelling or shortness of breath. Timing/Duration: other Quality: severe (Today) Head Injury Location: frontal Recent Head Trauma: occasional headaches Modifying Factors: improves with: exposure to light Associated Symptoms: nausea/vomiting. denies: confusion, fatigue, facial pain, fever/chills, flushing, loss of consciousness, nasal congestion, nasal drainage, numbness in legs/feet, rash, seizures, sinus infection, stiff neck, vision changes, weakness Allergies/Adverse Reactions: Allergies Penicillins Adverse Reaction (Unknown, Verified 04/13/14 15:43) Unknown morphine Adverse Reaction (Verified 09/09/17 21:17) Anaphylaxis Home Medications: Ambulatory Orders Metoprolol [Lopressor TAB] 25 mg PO DAILY 04/13/14 Azithromycin [Zithromax Z-MARIEL] 250 mg PO QDAY #6 tablet 12/04/18 predniSONE [Deltasone] 40 mg PO QDAY #8 tablet 12/04/18 Cyclobenzaprine [Flexeril] 10 mg PO QHS PRN #7 tablet 02/02/19 Ibuprofen [Motrin 800 MG tab] 800 mg PO Q8HR PRN #14 tablet 02/02/19 Cyclobenzaprine [Flexeril] 10 mg PO QHS PRN #10 tablet 06/13/20 Ketorolac [Toradol] 10 mg PO Q6H PRN #12 tablet 06/24/20 methOCARBAMOL [Robaxin TAB] 500 mg PO Q6H PRN #14 tablet 06/24/20 Baclofen 20 mg PO Q12H PRN #20 tablet 05/24/21 Clindamycin [Clindamycin CAP] 300 mg PO Q6H #40 capsule 05/24/21 Gabapentin 300 mg PO QHS #30 cap 05/24/21 Naproxen 500 mg PO Q12H PRN #30 tablet 05/24/21 predniSONE [Deltasone] 40 mg PO QDAY #10 tab 05/24/21 Butalb/Acetaminophen/Caffeine [Fioricet 50-300-40 mg CAP] 1 cap PO Q6HR PRN #12 cap 08/17/21 ED Review of Systems ROS: Stated complaint: SWOLLEN HANDS AND HEADACHE Other details as noted in HPI Comment: All other systems reviewed and negative Constitutional: denies: chills, diaphoresis Eyes: denies: eye pain, eye discharge, vision change ENT: denies: throat pain, hearing loss, epistaxis, congestion Respiratory: denies: cough, shortness of breath, SOB with exertion, SOB at rest Cardiovascular: denies: chest pain, palpitations, dyspnea on exertion, orthopnea, edema, syncope, paroxysmal nocturnal dyspnea Gastrointestinal: denies: abdominal pain, nausea, vomiting, diarrhea, hematemesis, melena, hematochezia Genitourinary: denies: urgency, dysuria, frequency, hematuria Musculoskeletal: denies: back pain Skin: other (Swelling to bilateral hands). denies: rash, lesions Neurological: headache. denies: weakness, numbness, paresthesias, confusion, abnormal gait, vertigo Psychiatric: denies: anxiety, depression ED Past Medical Hx - Past Medical History Hx Hypertension: Yes (SINCE 2012) Hx Asthma: Yes Hx COPD: Yes Additional medical history: thyroid?,pt intubated at [facility] 12/21/2016 when they overdosed her on morphine. Chronic lower back pain. Morbid obesity - Surgical History Hx Cholecystectomy: Yes Additional Surgical History: Tube ligation,uterine ablasion - Social History Smoking Status: Former Smoker Substance Use Type: None - Medications Home Medications: Home Medications Medication Instructions Recorded Confirmed Last Taken Type Metoprolol [Lopressor TAB] 25 mg PO DAILY 04/13/14 04/29/14 04/29/14 06:00 History Azithromycin [Zithromax Z-MARIEL] 250 mg PO QDAY #6 tablet 12/04/18 Unknown Rx predniSONE [Deltasone] 40 mg PO QDAY #8 tablet 12/04/18 Unknown Rx Cyclobenzaprine [Flexeril] 10 mg PO QHS PRN #7 tablet 02/02/19 Unknown Rx Ibuprofen [Motrin 800 MG tab] 800 mg PO Q8HR PRN #14 tablet 02/02/19 Unknown Rx Cyclobenzaprine [Flexeril] 10 mg PO QHS PRN #10 tablet 06/13/20 Unknown Rx Ketorolac [Toradol] 10 mg PO Q6H PRN #12 tablet 06/24/20 Unknown Rx methOCARBAMOL [Robaxin TAB] 500 mg PO Q6H PRN #14 tablet 06/24/20 Unknown Rx Baclofen 20 mg PO Q12H PRN #20 tablet 05/24/21 Unknown Rx Clindamycin [Clindamycin CAP] 300 mg PO Q6H #40 capsule 05/24/21 Unknown Rx Gabapentin 300 mg PO QHS #30 cap 05/24/21 Unknown Rx Naproxen 500 mg PO Q12H PRN #30 tablet 05/24/21 Unknown Rx predniSONE [Deltasone] 40 mg PO QDAY #10 tab 05/24/21 Unknown Rx Butalb/Acetaminophen/Caffeine 1 cap PO Q6HR PRN #12 cap 08/17/21 Unknown Rx [Fioricet 50-300-40 mg CAP] ED Physical Exam - General Limitations: No Limitations General appearance: alert, in no apparent distress - Head Head exam: Present: atraumatic, normocephalic - Eye Eye exam: Present: normal appearance. Absent: conjunctival injection - Neck Neck exam: Present: normal inspection, tenderness, full ROM. Absent: lymphadenopathy - Respiratory Respiratory exam: Present: normal lung sounds bilaterally. Absent: respiratory distress, wheezes, rales, rhonchi, stridor, chest wall tenderness - Cardiovascular Cardiovascular Exam: Present: tachycardia, normal heart sounds - GI/Abdominal GI/Abdominal exam: Present: soft, normal bowel sounds. Absent: distended, tenderness, guarding, rebound, rigid - Extremities Exam Extremities exam: Present: normal inspection - Expanded Upper Extremity Exam Left Hand Wrist exam: Present: swelling (Trace to 1+). Absent: tenderness, ecchymosis, deformity, crepidus, dislocation, erythema Vascular: Present: normal capillary refill, radial pulse. Absent: vascular compromise Right Hand Wrist exam: Present: swelling (Trace to 1+). Absent: ecchymosis, deformity, crepidus, dislocation, erythema Vascular: Present: normal capillary refill. Absent: vascular compromise, pulse deficit radial art - Back Exam Back exam: Present: normal inspection. Absent: tenderness - Neurological Exam Neurological exam: Present: alert, oriented X3, CN II-XII intact, normal gait, reflexes normal. Absent: motor sensory deficit - Expanded Neurological Exam Expanded Patient oriented to: Present: person, place, time Speech: Present: fluid speech Cranial nerves: EOM's Intact: Normal, Tongue Deviation: Normal, Facial Sensation: Normal Motor strength exam: RUE: 5, LUE: 5, RLE: 5, LLE: 5 Best Eye Response ([place]): (4) open spontaneously Best Motor Response ([place]): (6) obeys commands Best Verbal Response ([place]): (5) oriented [place] Total: 15 - Psychiatric Psychiatric exam: Present: normal affect, normal mood - Skin Skin exam: Present: warm, dry, intact, normal color ED Course Vital Signs 08/17/21 08/17/21 13:58 19:37 Temperature 98.4 F 98.5 F Pulse Rate 118 H 105 H Respiratory 18 16 Rate Blood Pressure 134/89 Blood Pressure 121/77 [Left] O2 Sat by Pulse 96 96 Oximetry - Reevaluation(s) Reevaluation #1: 08/17/21 18:52 Headache resolved ED Medical Decision Making - Medical Decision Making 51-year-old white female with a past medical history of hypertension, diabetes, and hypothyroidism presents to the emergency department for evaluation of headache. She states that she woke up this morning with a headache and some neck pain. She denies injury, vomiting, vision changes, and dizziness. She states that she has had some intermittent nausea today along with some photophobia. She also complains of intermittent swelling to her hands for the past 2 to 3 days. She denies any abdominal swelling or shortness of breath. Headache resolved after medication. Patient noted to have trace edema to bilateral hands. No swelling noted to ankles, no ascites noted, no JVD noted, no sclerotic uterus noted and patient denies shortness of breath, low suspicion for she is advised to follow-up with primary care provider for further evaluation and management, and return to the emergency department for any concerning symptoms. Critical care attestation.: If time is entered above; I have spent that time in minutes in the direct care of this critically ill patient, excluding procedure time. ED Disposition Clinical Impression: Bilateral hand swelling Headache Qualifiers: Headache type: unspecified Headache chronicity pattern: acute headache Intractability: not intractable Qualified Code(s): R51.9 - Headache, unspecified Disposition: 01 HOME / SELF CARE / HOMELESS Is pt being admited?: No Does the pt Need Aspirin: No Condition: Stable Instructions: General Headache Without Cause, Edema Additional Instructions: Take medications as prescribed follow-up with primary care provider for further evaluation and management. Return to the emergency department for any worsening symptoms. Prescriptions: Butalb/Acetaminophen/Caffeine [Fioricet 50-300-40 mg CAP] 1 cap PO Q6HR PRN #12 cap PRN Reason: Headache Referrals: ALICE BROUSSARD MD [Primary Care Provider] - 3-5 Days Time of Disposition: 18:56
[2021-08-17 19:39] VITALS: BP 121/77
== END 2021-08-17 19:40 | disposition home or self-care (01) ==
LOC: ED 12:56
DX: M79.89 Other specified soft tissue disorders (principal); M25.441 Effusion, right hand; R51.9 Headache, unspecified; I10 Essential (primary) hypertension; J45.909 Unspecified asthma, uncomplicated; Z90.49 Acquired absence of other specified parts of digestive tract; Z87.891 Personal history of nicotine dependence
CPT/HCPCS: 99282; J8540

== ENCOUNTER 2021-10-20 16:52 | Emergency (ER) | payer OTHER ==
[2021-10-20] MEDS ORDERED: dexAMETHasone 20 MG/5 ML VIAL IV ONE (23:03)
[2021-10-20] MEDS ORDERED: KETOROLAC 30 MG/1 ML INJ IV ONE (23:03)
[2021-10-20] MEDS ORDERED: SODIUM CHLORIDE 0.9% 1000 ML 1,000 ML IV ONE (23:04)
[2021-10-20 23:26] LABS: Basophils # (Auto) 0.1 K/mm3 (0.0-0.1); Basophils % (Auto) 0.7 % (0.0-1.8); Eosinophils # (Auto) 0.1 K/mm3 (0.0-0.4); Eosinophils % (Auto) 1.4 % (0.0-4.3); Hematocrit 40.3 % (30.3-42.9); Hemoglobin 13.3 gm/dl (10.1-14.3); Lymphocytes # (Auto) 2.7 K/mm3 (1.2-5.4); Lymphocytes % (Auto) 28.4 % (13.4-35.0); Mean Corpuscular HGB Conc 33 % (30-34); Mean Corpuscular Volume 92 fl (79-97); Monocytes # (Auto) 0.5 K/mm3 (0.0-0.8); Monocytes % (Auto) 5.2 % (0.0-7.3); Platelet Count 293 K/mm3 (140-440); Red Blood Count 4.41 M/mm3 (3.65-5.03); Red Cell Distribution Width 13.7 % (13.2-15.2)
[2021-10-20 23:43] LABS: Erythrocyte Sedimentation Rate 82 mm/Hr (0-20)
[2021-10-20 23:44] LABS: Alanine Aminotransferase 24 units/L (7-56); Albumin 3.9 g/dL (3.9-5); Blood Urea Nitrogen 13 mg/dL (7-17); Calcium 9.5 mg/dL (8.4-10.2); Hemolysis Index 12
[2021-10-20 23:52] LABS: BUN/Creatinine Ratio 22
[2021-10-21] MEDS ORDERED: SODIUM CHLORIDE 0.9% 1000 ML 1,000 ML IV ONE (00:38)
--- NOTE | 2021-10-21 01:53 | Emergency Department Report ---
ED Extremity Problem HPI - General Chief complaint: Extremity Injury, Upper Stated complaint: SWOLLEN HANDS NECK/CHEST PAIN Source: patient Mode of arrival: Ambulatory Limitations: No Limitations - History of Present Illness Initial comments: Patient is a 51-year-old female with a history of hypertension, rnr-cyhevbt-hceafbrac diabetes, chronic rheumatoid arthritis, asthma, COPD, morbid obesity and chronic low back pain who presents to the ED with complaint of acute exacerbation of her chronic pain characterized by bilateral shoulder, bilateral hand and wrist pain with swelling for the last 2 weeks, worse in the last 3 days. Patient states that she is unable to perform any active range of motion of the upper extremities because of worsening pain in the shoulders. Patient states that the pain is constant and persistent and that she is unable to sleep because of constant pain. Patient denies fall, traumatic injury, heavy lifting, nausea and vomiting, chest pain, shortness of breath, neck pain, back pain, abdominal pain, fever and chills. MD Complaint: extremity pain (Bilateral shoulder, wrist and hand pains with swelling), extremity swelling, joint swelling, joint paint -: Gradual, year(s) (1), unknown (chronic rheumatoid arthritis) Location: upper extremity (bilateral shoulders, hands and wrist pain and swelling) History of Same: Yes (chronic rheumatoid arthritis) -: Yes arthralgia, No fever, No associated dyspnea, No associated chest pain Radiation: distal Severity scale (0 -10): 8 Quality: aching, sharp Consistency: constant Improves with: nothing Worsens with: weight bearing, walking, exertion, palpation Associated Symptoms: denies other symptoms, myalgias, arthralgias. denies: chest pain, shortness of breath, fever, rash, other - Related Data Home Medications Medication Instructions Recorded Confirmed Last Taken Metoprolol [Lopressor TAB] 25 mg PO DAILY 04/13/14 04/29/14 04/29/14 06:00 Previous Rx's Medication Instructions Recorded Last Taken Type Azithromycin [Zithromax Z-MARIEL] 250 mg PO QDAY #6 tablet 12/04/18 Unknown Rx Cyclobenzaprine [Flexeril] 10 mg PO QHS PRN #7 tablet 02/02/19 Unknown Rx Cyclobenzaprine [Flexeril] 10 mg PO QHS PRN #10 tablet 06/13/20 Unknown Rx Ketorolac [Toradol] 10 mg PO Q6H PRN #12 tablet 06/24/20 Unknown Rx Baclofen 20 mg PO Q12H PRN #20 tablet 05/24/21 Unknown Rx Clindamycin [Clindamycin CAP] 300 mg PO Q6H #40 capsule 05/24/21 Unknown Rx Naproxen 500 mg PO Q12H PRN #30 tablet 05/24/21 Unknown Rx predniSONE [Deltasone] 40 mg PO QDAY #10 tab 05/24/21 Unknown Rx Butalb/Acetaminophen/Caffeine 1 cap PO Q6HR PRN #12 cap 08/17/21 Unknown Rx [Fioricet 50-300-40 mg CAP] Gabapentin 300 mg PO BID #60 cap 10/21/21 Unknown Rx Ibuprofen [Motrin 800 MG tab] 800 mg PO Q8HR PRN #40 tablet 10/21/21 Unknown Rx methOCARBAMOL [Robaxin TAB] 500 mg PO Q8H PRN #30 tablet 10/21/21 Unknown Rx predniSONE [Deltasone] 40 mg PO QDAY #10 tablet 10/21/21 Unknown Rx Allergies Allergy/AdvReac Type Severity Reaction Status Date / Time Penicillins AdvReac Unknown Unknown Verified 04/13/14 15:43 morphine AdvReac Anaphylaxis Verified 09/09/17 21:17 ED Review of Systems ROS: Stated complaint: SWOLLEN HANDS NECK/CHEST PAIN Other details as noted in HPI Constitutional: denies: chills, fever Eyes: denies: eye pain, eye discharge, vision change ENT: denies: ear pain, throat pain Respiratory: denies: cough, orthopnea, shortness of breath, wheezing Cardiovascular: denies: chest pain, palpitations Endocrine: no symptoms reported Gastrointestinal: denies: abdominal pain, nausea, vomiting, diarrhea Genitourinary: denies: urgency, dysuria, discharge Musculoskeletal: joint swelling, arthralgia (bilateral shoulder, wrist and hand pain and swelling). denies: back pain, myalgia Skin: denies: rash, lesions Neurological: denies: headache, weakness, paresthesias Psychiatric: denies: anxiety, depression Hematological/Lymphatic: denies: easy bleeding, easy bruising ED Past Medical Hx - Past Medical History Hx Hypertension: Yes (SINCE 2012) Hx Diabetes: Yes Hx Arthritis: Yes (rheumatoid arthritis) Hx Asthma: Yes Hx COPD: Yes Additional medical history: thyroid?,pt intubated at [facility] 12/21/2016 when they overdosed her on morphine. Chronic lower back pain. Morbid obesity - Surgical History Hx Cholecystectomy: Yes Additional Surgical History: Tube ligation,uterine ablasion - Social History Smoking Status: Former Smoker Substance Use Type: None - Medications Home Medications: Home Medications Medication Instructions Recorded Confirmed Last Taken Type Metoprolol [Lopressor TAB] 25 mg PO DAILY 04/13/14 04/29/14 04/29/14 06:00 History Azithromycin [Zithromax Z-MARIEL] 250 mg PO QDAY #6 tablet 12/04/18 Unknown Rx Cyclobenzaprine [Flexeril] 10 mg PO QHS PRN #7 tablet 02/02/19 Unknown Rx Cyclobenzaprine [Flexeril] 10 mg PO QHS PRN #10 tablet 06/13/20 Unknown Rx Ketorolac [Toradol] 10 mg PO Q6H PRN #12 tablet 06/24/20 Unknown Rx Baclofen 20 mg PO Q12H PRN #20 tablet 05/24/21 Unknown Rx Clindamycin [Clindamycin CAP] 300 mg PO Q6H #40 capsule 05/24/21 Unknown Rx Naproxen 500 mg PO Q12H PRN #30 tablet 05/24/21 Unknown Rx predniSONE [Deltasone] 40 mg PO QDAY #10 tab 05/24/21 Unknown Rx Butalb/Acetaminophen/Caffeine 1 cap PO Q6HR PRN #12 cap 08/17/21 Unknown Rx [Fioricet 50-300-40 mg CAP] Gabapentin 300 mg PO BID #60 cap 10/21/21 Unknown Rx Ibuprofen [Motrin 800 MG tab] 800 mg PO Q8HR PRN #40 tablet 10/21/21 Unknown Rx methOCARBAMOL [Robaxin TAB] 500 mg PO Q8H PRN #30 tablet 10/21/21 Unknown Rx predniSONE [Deltasone] 40 mg PO QDAY #10 tablet 10/21/21 Unknown Rx ED Physical Exam - General Limitations: No Limitations General appearance: alert, in no apparent distress - Head Head exam: Present: atraumatic, normocephalic, normal inspection - Eye Eye exam: Present: normal appearance, PERRL, EOMI Pupils: Present: normal accommodation - ENT ENT exam: Present: normal exam, normal orophraynx, mucous membranes moist, TM's normal bilaterally, normal external ear exam - Neck Neck exam: Present: normal inspection, full ROM. Absent: tenderness - Respiratory Respiratory exam: Present: normal lung sounds bilaterally. Absent: respiratory distress, wheezes, rales, rhonchi, chest wall tenderness, accessory muscle use - Cardiovascular Cardiovascular Exam: Present: regular rate, normal rhythm, normal heart sounds. Absent: systolic murmur, diastolic murmur, rubs, gallop - GI/Abdominal GI/Abdominal exam: Present: soft, normal bowel sounds. Absent: tenderness, guarding, rebound, hyperactive bowel sounds, hypoactive bowel sounds, organomegaly, mass - Extremities Exam Extremities exam: Present: normal inspection, tenderness (Palpable bilateral shoulder, hand and wrist tenderness with limited ROM due to pain; Mild swelling of bilateral hands and fingers), normal capillary refill, joint swelling. Absent: pedal edema, calf tenderness - Back Exam Back exam: Present: normal inspection, full ROM. Absent: tenderness, CVA tenderness (R), CVA tenderness (L), muscle spasm, paraspinal tenderness, vertebr al tenderness - Neurological Exam Neurological exam: Present: alert, oriented X3, CN II-XII intact, normal gait, reflexes normal - Psychiatric Psychiatric exam: Present: normal affect, normal mood - Skin Skin exam: Present: warm, dry, intact, normal color. Absent: rash ED Course Vital Signs 10/20/21 10/20/21 17:07 19:28 Temperature 89.1 F L 98.1 F Pulse Rate 91 H Respiratory 16 Rate Blood Pressure 145/79 [Left] O2 Sat by Pulse 96 Oximetry ED Medical Decision Making - Lab Data Result diagrams: 10/20/21 23:07 10/20/21 23:07 - Medical Decision Making This is a 51-year-old female with a history of hypertension, mwr-flpbwaw-uozitmxbg diabetes, chronic rheumatoid arthritis, asthma, COPD, morbid obesity and chronic low back pain who presents to the ED with complaint of acute exacerbation of her chronic pain characterized by bilateral shoulder, bilateral hand and wrist pain with swelling for the last 2 weeks, worse in the last 3 days. Patient states that she is unable to perform any active range of motion of the upper extremities because of worsening pain in the shoulders. Patient states that the pain is constant and persistent and that she is unable to sleep because of constant pain. In the ED, patient is alert and oriented x3 and is not in any distress. Patient was treated for pain in the ED. patient also received normal saline 2 L IV bolus x1. Lab test results were reviewed and are all nonactionable except for hyperglycemia of 305 mg/dL and mild hyponatremia of 134 mmol/L. On reevaluation, patient's pain is well controlled with medication. Patient was discharged home on pain medications and advised to follow-up with her primary care physician in 7 to 10 days for reevaluation or return to the ED immediately if symptoms get worse. - Differential Diagnosis rheumatoid arthritis; chronic pain; tendonitis; bursitis; muscle strains Critical care attestation.: If time is entered above; I have spent that time in minutes in the direct care of this critically ill patient, excluding procedure time. ED Disposition Clinical Impression: Chronic polyarticular juvenile rheumatoid arthritis, Chronic pain syndrome, Bilateral shoulder bursitis Shoulder tendonitis Qualifiers: Laterality: unspecified laterality Qualified Code(s): M77.8 - Other enthesopathies, not elsewhere classified Hyperglycemia due to type 2 diabetes mellitus Qualifiers: Diabetes mellitus usp insulin use: without usp use Qualified Code(s): E11.65 - Type 2 diabetes mellitus with hyperglycemia Disposition: 01 HOME / SELF CARE / HOMELESS Is pt being admited?: No Does the pt Need Aspirin: No Condition: Stable Instructions: Bursitis, Wdhb-[id number], Arthritis, Gszw-ix-[id number], Shoulder Impingement Syndrome, Diabetes Mellitus Type 2 in Adults (ED), Pain Medicine Instructions, Fkfa-bt-[id number], Type 2 Diabetes Mellitus, Self Care, Adult, Uchy-uc-Vwkp Additional Instructions: [place] los medicamentos con alimentos, kailey muchos lquidos y errol un seguimiento con hurd mdico de atencin primaria en 7 a 10 patrick para jeison reevaluacin. Regrese al servicio de urgencias inmediatamente si los sntomas empeoran. Prescriptions: predniSONE [Deltasone] 40 mg PO QDAY #10 tablet Gabapentin 300 mg PO BID #60 cap Ibuprofen [Motrin 800 MG tab] 800 mg PO Q8HR PRN #40 tablet PRN Reason: pain methOCARBAMOL [Robaxin TAB] 500 mg PO Q8H PRN #30 tablet PRN Reason: Muscle Spasm Referrals: [facility] [Provider Group] - 7-10 days Time of Disposition: 01:56 Print Language: ROMANIAN
[2021-10-21 02:40] VITALS: BP 149/86
== END 2021-10-21 03:07 | disposition home or self-care (01) ==
LOC: ED 16:52
DX: M77.8 Other enthesopathies, not elsewhere classified (principal); M08.40 Pauciarticular juvenile rheumatoid arthritis, unspecified site; M75.52 Bursitis of left shoulder; M75.51 Bursitis of right shoulder; G89.4 Chronic pain syndrome; M54.9 Dorsalgia, unspecified; E11.65 Type 2 diabetes mellitus with hyperglycemia; I10 Essential (primary) hypertension; J44.9 Chronic obstructive pulmonary disease, unspecified; E66.01 Morbid (severe) obesity due to excess calories; Z98.890 Other specified postprocedural states; Z87.891 Personal history of nicotine dependence; Z88.0 Allergy status to penicillin; Z88.5 Allergy status to narcotic agent
CPT/HCPCS: 36415; 80053; 84484; 85025; 85652; 93005; 96361; 96374; 96375; 99283; J1100; J1885; J7030

== ENCOUNTER 2021-12-01 19:43 | Emergency (ER) | payer OTHER ==
[2021-12-02] MEDS ORDERED: oxyCODONE /ACETAMINOPHEN 5-325MG TAB PO ONE (00:38)
[2021-12-02] MEDS ORDERED: IBUPROFEN 600 MG TAB PO ONE (00:38)
[2021-12-02] MEDS ORDERED: predniSONE 20 MG TAB PO ONE (00:38)
[2021-12-02] MEDS ORDERED: ONDANSETRON 4 MG ODT TAB PO ONE (00:38)
--- NOTE | 2021-12-02 01:30 | Emergency Department Report ---
ED General Adult HPI - General Chief complaint: Fall Stated complaint: FELL HANDS/FEET SWOLLEN Source: patient Mode of arrival: Ambulatory Limitations: No Limitations - History of Present Illness Initial comments: Patient is a 51-year-old female with a history of hypertension, chronic osteoarthritis, chronic low back pain and zjf-sjemomv-hgboenyjw diabetes who presents to the ED with complaint of acute exacerbation of her chronic pain characterized by persistent low back pain that radiates to the left leg, left upper arm pain and bilateral wrist, hand and ankle pain with mild swelling in the joints for the last 1 month, worse in the last 2 days. Patient states that she slipped and fell about 8 hours ago and landed on her left arm and that her pain has worsened since that fall. Patient however states that the pain is worse with movement. Patient states that she has not taken any medications for pain. Patient denies dizziness, syncope, seizures, head or neck injuries, abdominal pain, chest pain, shortness of breath, nausea and vomiting, loss of consciousness, numbness and tingling or weakness of upper and lower extremities bilaterally. MD Complaint: Diffuse body aches and pains, low back pain, polyarticular joint pains -: Gradual, month(s) (1) Location: back (LOWER), upper extremity (Bilateral hands, wrists), lower extremity (Bilateral ankles, knees and feet) Radiation: extremity (Left leg) Severity scale (0 -10): 8 Quality: aching, sharp Consistency: constant Improves with: none Worsens with: movement Associated Symptoms: denies other symptoms. denies: confusion, chest pain, cough, diaphoresis, fever/chills, headaches, loss of appetite, malaise, nausea/vomiting, rash, seizure, shortness of breath, syncope, weakness Treatments Prior to Arrival: none - Related Data Home Medications Medication Instructions Recorded Confirmed Last Taken Metoprolol [Lopressor TAB] 25 mg PO DAILY 04/13/14 04/29/14 04/29/14 06:00 Previous Rx's Medication Instructions Recorded Last Taken Type Azithromycin [Zithromax Z-MARIEL] 250 mg PO QDAY #6 tablet 12/04/18 Unknown Rx Cyclobenzaprine [Flexeril] 10 mg PO QHS PRN #7 tablet 02/02/19 Unknown Rx Cyclobenzaprine [Flexeril] 10 mg PO QHS PRN #10 tablet 06/13/20 Unknown Rx Ketorolac [Toradol] 10 mg PO Q6H PRN #12 tablet 06/24/20 Unknown Rx Baclofen 20 mg PO Q12H PRN #20 tablet 05/24/21 Unknown Rx Clindamycin [Clindamycin CAP] 300 mg PO Q6H #40 capsule 05/24/21 Unknown Rx Butalb/Acetaminophen/Caffeine 1 cap PO Q6HR PRN #12 cap 08/17/21 Unknown Rx [Fioricet 50-300-40 mg CAP] Ibuprofen [Motrin 800 MG tab] 800 mg PO Q8HR PRN #40 tablet 10/21/21 Unknown Rx methOCARBAMOL [Robaxin TAB] 500 mg PO Q8H PRN #30 tablet 10/21/21 Unknown Rx predniSONE [Deltasone] 40 mg PO QDAY #10 tablet 10/21/21 Unknown Rx Gabapentin 300 mg PO BID #60 cap 12/02/21 Unknown Rx Naproxen 500 mg PO Q12H PRN #30 tablet 12/02/21 Unknown Rx methOCARBAMOL [Robaxin TAB] 750 mg PO Q8H PRN #30 tab 12/02/21 Unknown Rx predniSONE [Deltasone] 40 mg PO QDAY #10 tab 12/02/21 Unknown Rx Allergies Allergy/AdvReac Type Severity Reaction Status Date / Time Penicillins AdvReac Unknown Unknown Verified 04/13/14 15:43 morphine AdvReac Anaphylaxis Verified 09/09/17 21:17 ED Review of Systems ROS: Stated complaint: FELL HANDS/FEET SWOLLEN Other details as noted in HPI Constitutional: denies: chills, fever Eyes: denies: eye pain, eye discharge, vision change ENT: denies: ear pain, throat pain Respiratory: denies: cough, shortness of breath, wheezing Cardiovascular: denies: chest pain, palpitations Endocrine: no symptoms reported Gastrointestinal: denies: abdominal pain, nausea, diarrhea Genitourinary: denies: urgency, dysuria, discharge Musculoskeletal: back pain (Low back pain that radiates to the left leg), arthralgia (Bilateral wrists, hands, knees and ankle pain), myalgia, other (Left upper arm pain). denies: joint swelling Skin: denies: rash, lesions Neurological: denies: headache, weakness, paresthesias Psychiatric: denies: anxiety, depression Hematological/Lymphatic: denies: easy bleeding, easy bruising ED Past Medical Hx - Past Medical History Hx Hypertension: Yes (SINCE 2012) Hx Diabetes: Yes Hx Arthritis: Yes (rheumatoid arthritis) Hx Asthma: Yes Hx COPD: Yes Additional medical history: thyroid?,pt intubated at [facility] 12/21/2016 when they overdosed her on morphine. Chronic lower back pain. Morbid obesity - Surgical History Hx Cholecystectomy: Yes Additional Surgical History: Tube ligation,uterine ablasion - Social History Smoking Status: Former Smoker Substance Use Type: None - Medications Home Medications: Home Medications Medication Instructions Recorded Confirmed Last Taken Type Metoprolol [Lopressor TAB] 25 mg PO DAILY 04/13/14 04/29/14 04/29/14 06:00 History Azithromycin [Zithromax Z-MARIEL] 250 mg PO QDAY #6 tablet 12/04/18 Unknown Rx Cyclobenzaprine [Flexeril] 10 mg PO QHS PRN #7 tablet 02/02/19 Unknown Rx Cyclobenzaprine [Flexeril] 10 mg PO QHS PRN #10 tablet 06/13/20 Unknown Rx Ketorolac [Toradol] 10 mg PO Q6H PRN #12 tablet 06/24/20 Unknown Rx Baclofen 20 mg PO Q12H PRN #20 tablet 05/24/21 Unknown Rx Clindamycin [Clindamycin CAP] 300 mg PO Q6H #40 capsule 05/24/21 Unknown Rx Butalb/Acetaminophen/Caffeine 1 cap PO Q6HR PRN #12 cap 08/17/21 Unknown Rx [Fioricet 50-300-40 mg CAP] Ibuprofen [Motrin 800 MG tab] 800 mg PO Q8HR PRN #40 tablet 10/21/21 Unknown Rx methOCARBAMOL [Robaxin TAB] 500 mg PO Q8H PRN #30 tablet 10/21/21 Unknown Rx predniSONE [Deltasone] 40 mg PO QDAY #10 tablet 10/21/21 Unknown Rx Gabapentin 300 mg PO BID #60 cap 12/02/21 Unknown Rx Naproxen 500 mg PO Q12H PRN #30 tablet 12/02/21 Unknown Rx methOCARBAMOL [Robaxin TAB] 750 mg PO Q8H PRN #30 tab 12/02/21 Unknown Rx predniSONE [Deltasone] 40 mg PO QDAY #10 tab 12/02/21 Unknown Rx ED Physical Exam - General Limitations: No Limitations General appearance: alert, in no apparent distress - Head Head exam: Present: atraumatic, normocephalic, normal inspection - Eye Eye exam: Present: normal appearance, PERRL, EOMI Pupils: Present: normal accommodation - ENT ENT exam: Present: normal exam, normal orophraynx, mucous membranes moist, TM's normal bilaterally, normal external ear exam - Neck Neck exam: Present: normal inspection, full ROM. Absent: tenderness - Respiratory Respiratory exam: Present: normal lung sounds bilaterally. Absent: respiratory distress, wheezes, rhonchi, chest wall tenderness, accessory muscle use, decreased breath sounds - Cardiovascular Cardiovascular Exam: Present: normal rhythm, tachycardia, normal heart sounds. Absent: systolic murmur, diastolic murmur, rubs, gallop - GI/Abdominal GI/Abdominal exam: Present: soft, normal bowel sounds. Absent: tenderness, guarding, rebound, hyperactive bowel sounds, hypoactive bowel sounds, organomegaly - Extremities Exam Extremities exam: Present: normal inspection, full ROM, tenderness (Palpable bilateral wrist, hand, knees and ankle tenderness with mild swelling in the joints), normal capillary refill, joint swelling (Mild polyarticular joint swelling and tenderness in the bilateral hands, wrists, ankles and knees). Absent: calf tenderness - Back Exam Back exam: Present: normal inspection, full ROM, tenderness (Palpable lumbosacral paraspinal musculoskeletal tenderness), muscle spasm, paraspinal tenderness. Absent: CVA tenderness (R), CVA tenderness (L), vertebral tenderness - Neurological Exam Neurological exam: Present: alert, oriented X3, CN II-XII intact, normal gait, reflexes normal - Psychiatric Psychiatric exam: Present: normal affect, normal mood - Skin Skin exam: Present: warm, dry, intact, normal color. Absent: rash ED Course Vital Signs 12/01/21 20:01 Temperature 98.1 F Pulse Rate 114 H Respiratory 18 Rate Blood Pressure 149/81 O2 Sat by Pulse 95 Oximetry ED Medical Decision Making - Medical Decision Making This is a 51-year-old female with a history of hypertension, chronic osteoarthritis, chronic low back pain and wgc-ydvntip-cthtiphln diabetes who presents to the ED with complaint of acute exacerbation of her chronic pain characterized by persistent low back pain that radiates to the left leg, left upper arm pain and bilateral wrist, hand and ankle pain with mild swelling in the joints for the last 1 month, worse in the last 2 days. Patient states that she slipped and fell about 8 hours ago and landed on her left arm and that her pain has worsened since that fall. Patient however states that the pain is worse with movement. Patient states that she has not taken any medications for pain. In the ED, patient is alert and oriented x3 and is not in any distress but appears to be in pain. Patient declined any x-rays at this time. Patient was treated for pain in the ED and observed in the ED. On reevaluation, patient's pain is well controlled medication. Patient will discharge home on medications and advised to follow-up with her primary care physician in 7 to 10 days for reevaluation or return to the ED immediately if symptoms get worse. - Differential Diagnosis Chronic pain; Osteoarthritis; chronic back pain; muscle spasm; sciatica Critical care attestation.: If time is entered above; I have spent that time in minutes in the direct care of this critically ill patient, excluding procedure time. ED Disposition Clinical Impression: Chronic osteoarthritis, Spasm of muscle of lower back Chronic low back pain with left-sided sciatica Qualifiers: Back pain laterality: left Qualified Code(s): M54.42 - Lumbago with sciatica, left side; G89.29 - Other chronic pain Disposition: 01 HOME / SELF CARE / HOMELESS Is pt being admited?: No Does the pt Need Aspirin: No Condition: Stable Instructions: Muscle Cramps and Spasms, [id number], Sciatica, [id number], Chronic Back Pain, [id number], Osteoarthritis Additional Instructions: Take medication with food, drink plenty of fluids and follow-up with your primary care physician in 7 to 10 days for reevaluation. Return to the ED immediately if symptoms get worse. Prescriptions: predniSONE [Deltasone] 40 mg PO QDAY #10 tab Gabapentin 300 mg PO BID #60 cap Naproxen 500 mg PO Q12H PRN #30 tablet PRN Reason: Pain , Severe (7-10) methOCARBAMOL [Robaxin TAB] 750 mg PO Q8H PRN #30 tab PRN Reason: Muscle Spasm Referrals: [facility] [Provider Group] - 7-10 days Time of Disposition: 01:34 Print Language: KAZAKH
[2021-12-02 02:24] VITALS: BP 154/87
== END 2021-12-02 02:25 | disposition home or self-care (01) ==
LOC: ED 19:43
DX: M19.90 Unspecified osteoarthritis, unspecified site (principal); M62.830 Muscle spasm of back; M54.42 Lumbago with sciatica, left side; I10 Essential (primary) hypertension; E11.9 Type 2 diabetes mellitus without complications; J45.909 Unspecified asthma, uncomplicated; Z87.891 Personal history of nicotine dependence
CPT/HCPCS: 99282; J3490; Q0162

== ENCOUNTER 2021-12-19 19:35 | Emergency (ER) | payer OTHER ==
[2021-12-19 21:17] LABS: Basophils # (Auto) 0.1 K/mm3 (0.0-0.1); Basophils % (Auto) 0.9 % (0.0-1.8); Eosinophils # (Auto) 0.2 K/mm3 (0.0-0.4); Hematocrit 38.2 % (30.3-42.9); Hemoglobin 13.3 gm/dl (10.1-14.3); Mean Corpuscular HGB Conc 35 % (30-34); Mean Corpuscular Volume 92 fl (79-97); Monocytes # (Auto) 0.6 K/mm3 (0.0-0.8); Platelet Count 253 K/mm3 (140-440); Red Blood Count 4.16 M/mm3 (3.65-5.03); Red Cell Distribution Width 14.1 % (13.2-15.2)
[2021-12-19 21:39] LABS: Alanine Aminotransferase 28 units/L (7-56); Albumin 3.9 g/dL (3.9-5); BUN/Creatinine Ratio 12; Blood Urea Nitrogen 11 mg/dL (7-17); Calcium 9.6 mg/dL (8.4-10.2); Hemolysis Index 6
--- NOTE | 2021-12-20 07:53 | Emergency Department Report ---
<RADHA WHATLEY - Last Filed: 12/20/21 08:33> ED General Adult HPI - General Chief complaint: Chest Pain Stated complaint: CHEST PAIN/HAND AND FEET SWOLLEN PUI?: No Source: patient Mode of arrival: Ambulatory Limitations: No Limitations - History of Present Illness Initial comments: Is a 51-year-old female that comes to the emergency room with chest pain and bilateral leg swelling. At the time of provider assessment she has been in the ER 12 hours. She continues to have left chest pain and left arm pain. Repeat EKG and troponin has been ordered. Patient denies any fall or trauma. She denies fever or chills. Denies abdominal pain or back pain. She is ambulatory with a limp she states because her feet are swollen. Labs ordered by triage protocol found to have an elevated D-dimer: We will defer to treating physician scanning pending additional labs. - Related Data Home Medications Medication Instructions Recorded Confirmed Last Taken amLODIPine 25 mg PO QDAY 12/20/21 12/20/21 Unknown Previous Rx's Medication Instructions Recorded Last Taken Type HYDROcodone/APAP 5-325 [[place] 1 each PO Q6HR PRN 4 Days #9 tablet 12/20/21 Unknown Rx 5/325] Prednisone [predniSONE (Alyssa) ER 10 mg PO QDAY #5 12/20/21 Unknown Rx TAB] Allergies Allergy/AdvReac Type Severity Reaction Status Date / Time Penicillins AdvReac Unknown Unknown Verified 12/20/21 08:38 morphine AdvReac Anaphylaxis Verified 12/20/21 08:38 ED Review of Systems Comment: All other systems reviewed and negative ED Past Medical Hx - Past Medical History Previous Medical History?: Yes Hx Hypertension: Yes (SINCE 2012) Hx CVA: No Hx Heart Attack/AMI: No Hx Congestive Heart Failure: No Hx Diabetes: Yes Hx Deep Vein Thrombosis: No Hx Pulmonary Embolism: No Hx GERD: No Hx Liver Disease: No Hx Renal Disease: No Hx of Cancer: No Hx Sickle Cell Disease: No Hx Arthritis: Yes (rheumatoid arthritis) Hx Headaches / Migraines: No Hx Seizures: No Hx Kidney Stones: No Hx Psychiatric Treatment: No Hx Asthma: Yes Hx COPD: Yes Hx Tuberculosis: No Hx Dementia: No Hx HIV: No Additional medical history: thyroid?,pt intubated at [facility] 12/21/2016 when they overdosed her on morphine. Chronic lower back pain. Morbid obesity - Surgical History Past Surgical History?: Yes Hx Cholecystectomy: Yes Additional Surgical History: Tube ligation,uterine ablasion - Family History Family history: other (mom and dad dec ) - Social History Smoking Status: Former Smoker Substance Use Type: None - Medications Home Medications: Home Medications Medication Instructions Recorded Confirmed Last Taken Type HYDROcodone/APAP 5-325 [[place] 1 each PO Q6HR PRN 4 Days #9 tablet 12/20/21 Unknown Rx 5/325] Prednisone [predniSONE (Alyssa) ER 10 mg PO QDAY #5 12/20/21 Unknown Rx TAB] amLODIPine 25 mg PO QDAY 12/20/21 12/20/21 Unknown History ED Physical Exam - General Limitations: No Limitations General appearance: alert - Head Head exam: Present: normocephalic - Eye Eye exam: Present: PERRL - ENT ENT exam: Present: mucous membranes moist - Neck Neck exam: Present: normal inspection ED Course - Reevaluation(s) Reevaluation #1: 12/20/21 07:51 thyroid norvasc insulin shot Reevaluation #2: 12/20/21 08:36 pt to main ER ED Medical Decision Making - Lab Data Result diagrams: 12/19/21 20:56 12/19/21 20:56 - EKG Data -: EKG Interpreted by Ia ED Disposition Clinical Impression: Swelling of extremity of unknown etiology Disposition: 01 HOME / SELF CARE / HOMELESS Condition: Stable Additional Instructions: Please make a follow-up appointment with your primary care provider to be seen within 3 days for further outpatient evaluation of-year-old for extremity swelling. Prescriptions: HYDROcodone/APAP 5-325 [[place] 5/325] 1 each PO Q6HR PRN 4 Days #9 tablet PRN Reason: Pain Prednisone [predniSONE (Alyssa) ER TAB] 10 mg PO QDAY #5 Referrals: ALICE BROUSSARD MD [Primary Care Provider] - 3-5 Days <RICCARDO BENAVIDEZ - Last Filed: 12/20/21 14:10> ED Review of Systems ROS: Stated complaint: CHEST PAIN/HAND AND FEET SWOLLEN Other details as noted in HPI ED Course Vital Signs 12/19/21 12/19/21 12/20/21 19:35 20:45 09:07 Temperature 99.2 F 99.2 F Pulse Rate 111 H 113 H Respiratory 20 18 Rate Blood Pressure 138/86 Blood Pressure 138/86 [Right] O2 Sat by Pulse 95 95 95 Oximetry 12/20/21 12/20/21 12/20/21 09:15 09:31 09:45 Temperature Pulse Rate 107 H 108 H 108 H Respiratory 28 H 27 H 23 Rate Blood Pressure 134/76 134/76 134/76 Blood Pressure [Right] O2 Sat by Pulse 94 95 97 Oximetry 12/20/21 12/20/21 12/20/21 10:01 11:33 11:45 Temperature Pulse Rate 107 H 117 H 108 H Respiratory 14 18 17 Rate Blood Pressure 186/105 186/105 186/105 Blood Pressure [Right] O2 Sat by Pulse 96 96 Oximetry ED Medical Decision Making - Lab Data Result diagrams: 12/19/21 20:56 12/19/21 20:56 Critical care attestation.: If time is entered above; I have spent that time in minutes in the direct care of this critically ill patient, excluding procedure time. ED Disposition Is pt being admited?: No Does the pt Need Aspirin: No Time of Disposition: 14:08
--- NOTE | 2021-12-20 09:19 | XRay Report ---
CHEST 1 VIEW 12/20/2021 8:53 AM INDICATION / CLINICAL INFORMATION: chest pain. COMPARISON: None available. FINDINGS: SUPPORT DEVICES: None. HEART / MEDIASTINUM: No significant abnormality. LUNGS / PLEURA: Mild increased density seen in the lower lungs and retrocardiac region. Findings may be vascular however clinical correlation No pneumothorax. Signer Name: Zoltan Duran MD Signed: 12/20/2021 9:15 AM Workstation Name: [id number]
[2021-12-20 09:32] LABS: Mucus,Urine FEW /HPF
--- NOTE | 2021-12-20 09:42 | Electrocardiograph Report ---
[facility] Test Date: 2021-12-19 Test Time: 20:49:54 Pat Name: DAVID MAN Department: Room: Gender: F Matrix Supervisor: BENJI : 1970 Requested By: RADHA WHATLEY Order Number: [id number] Reading MD: Gorge Tidwell Measurements Intervals [place] Rate: 120 P: 69 DC: 150 QRS: -25 QRSD: 77 T: 45 QT: 320 QTc: 453 Interpretive Statements Sinus tachycardia Probable left atrial enlargement Inferior infarct, old Anterior infarct, old Compared to ECG 10/20/2021 23:36:21 Myocardial infarct finding now present Sinus rhythm no longer present Electronically Signed On 12-20-2021 9:41:38 EDT by Gorge Tidwell
[2021-12-20 09:49] LABS: Bilirubin,Urine Negative (Negative); Blood,Urine Negative (Negative); Color,Urine Yellow (Yellow); Protein,Urine <30 mg dL mg/dL (Negative); Urobilinogen,Urine < 2.0 mg/dL (<2.0)
--- NOTE | 2021-12-20 11:32 | Vascular Lab Report ---
DUPLEX DOPPLER LOWER EXTREMITY VEINS, BILATERAL INDICATION / CLINICAL INFORMATION: EXTREMITY SWELLING W/ HIGH DDIMER. TECHNIQUE: Duplex doppler imaging was performed through the veins of both lower extremities using venous ranjana mel and other maneuvers. COMPARISON: None available. FINDINGS: RIGHT COMMON FEMORAL VEIN: Negative. RIGHT FEMORAL VEIN: Negative. RIGHT POPLITEAL VEIN: Negative. RIGHT CALF VEINS: Negative. LEFT COMMON FEMORAL VEIN: Negative. LEFT FEMORAL VEIN: Negative. LEFT POPLITEAL VEIN: Negative. LEFT CALF VEINS: Negative. ADDITIONAL FINDINGS: None. IMPRESSION: 1. No sonographic evidence for DVT in either lower extremity. Signer Name: Damien Samuel MD Signed: 12/20/2021 11:28 AM Workstation Name: [email or web address]
--- NOTE | 2021-12-20 11:33 | Vascular Lab Report ---
DUPLEX DOPPLER UPPER EXTREMITY VENOUS, BILATERAL INDICATION / CLINICAL INFORMATION: EXTREMITY SWELLING W/ HIGH D-DIMER. TECHNIQUE: Duplex doppler imaging was performed through the veins of the right and left upper extremi ty using venous compression and other maneuvers. COMPARISON: None available. FINDINGS: RIGHT INTERNAL JUGULAR VEIN: Negative. RIGHT SUBCLAVIAN VEIN: Negative. RIGHT AXILLARY VEIN: Negative. RIGHT BRACHIAL VEIN: Negative. RIGHT FOREARM VEINS: Negative. RIGHT BASILIC VEIN (SUPERFICIAL): Negative. LEFT INTERNAL JUGULAR VEIN: Negative. LEFT SUBCLAVIAN VEIN: Negative. LEFT AXILLARY VEIN: Negative. LEFT BRACHIAL VEIN: Negative. LEFT FOREARM VEINS: Negative. LEFT BASILIC VEIN (SUPERFICIAL): Negative. ADDITIONAL FINDINGS: None. IMPRESSION: 1. No sonographic evidence for DVT in the right or left upper extremity. Signer Name: Paul Rayo MD Signed: 12/20/2021 11:29 AM Workstation Name: [email or web address]
[2021-12-20] MEDS ORDERED: LORazepam 2 MG/ML VIAL IV ONE (11:52)
--- NOTE | 2021-12-20 12:39 | Cat Scan Report ---
CT angio chest INDICATION / CLINICAL INFORMATION: DDIMER HIGH; R/O PULMONARY EMBOLISM. TECHNIQUE: Axial CT images were obtained through the chest after injection of IV contrast. 3 plane MIP and/or 3D reconstructions were produced. All CT scans at this location are performed using CT dose reduction f or ALARA by means of automated exposure control. COMPARISON: None available. FINDINGS: PULMONARY ARTERIES: No pulmonary emboli. HEART: Large quantity of multivessel coronary atherosclerotic calcifications. MEDIASTINUM / VAMSI: No significant abnormality. LUNGS: Lungs are clear No pleural effusion. No pneumothorax. ADDITIONAL FINDINGS: None. UPPER ABDOMEN: No acute findings. SKELETAL STRUCTURES: No significant osseous abnormality. IMPRESSION: 1. No CT evidence for pulmonary embolism. 2. No acute findings. Signer Name: Noah Morris MD Signed: 12/20/2021 12:34 PM Workstation Name: [id number]
[2021-12-20] MEDS ORDERED: dexAMETHasone 4 MG/ML VIAL IV ONE (13:57)
[2021-12-20] MEDS ORDERED: KETOROLAC 30 MG/1 ML INJ IV ONE (13:57)
[2021-12-20 14:59] VITALS: BP 134/73
--- NOTE | 2021-12-21 09:03 | Electrocardiograph Report ---
[facility] Test Date: 2021-12-20 Test Time: 09:00:17 Pat Name: DAVID MAN Department: Room: Gender: F Copy Room Technician: KYLER : 1970 Requested By: RICCARDO BENAVIDEZ Order Number: [id number] Reading MD: Gorge Tidwell Measurements Intervals [place] Rate: 107 P: 59 ID: [id number] QRS: -20 QRSD: 88 T: 54 QT: 339 QTc: 451 Interpretive Statements Sinus tachycardia Inferior infarct, old Consider anterior infarct Compared to ECG 12/19/2021 20:49:54 No significant changes Electronically Signed On 12-21-2021 9:03:39 EDT by Gorge Tidwell
== END 2021-12-20 14:58 | disposition home or self-care (01) ==
LOC: ED 19:35
DX: R22.43 Localized swelling, mass and lump, lower limb, bilateral (principal); R07.89 Other chest pain; I10 Essential (primary) hypertension; E11.9 Type 2 diabetes mellitus without complications; M06.9 Rheumatoid arthritis, unspecified; G89.29 Other chronic pain; M54.59 Other low back pain; J45.909 Unspecified asthma, uncomplicated; Z98.890 Other specified postprocedural states; Z87.891 Personal history of nicotine dependence; Z88.0 Allergy status to penicillin; Z88.5 Allergy status to narcotic agent; Z79.899 Other long term (current) drug therapy
CPT/HCPCS: 36415; 71045; 71275; 80053; 81001; 83880; 84484; 85025; 85379; 93005; 93970; 96374; 99284; J2060; Q9967

== ENCOUNTER 2022-01-11 07:46 | Emergency (ER) | payer OTHER ==
[2022-01-11 07:53] VITALS: BP 131/79
[2022-01-11] MEDS ORDERED: INSULIN REGULAR, HUMAN 100 UNITS/1 ML IV ONE (09:48)
[2022-01-11] MEDS ORDERED: SODIUM CHLORIDE 0.9% 1000 ML 1,000 ML IV ONE (09:48)
--- NOTE | 2022-01-11 10:31 | XRay Report ---
CHEST 2 VIEWS INDICATION / CLINICAL INFORMATION: CP. COMPARISON: 12/20/2021 FINDINGS: SUPPORT DEVICES: None. HEART / MEDIASTINUM: No significant abnormality. LUNGS / PLEURA: No significant pulmonary or pleural abnormality. No pneumothorax. ADDITIONAL FINDINGS: No significant additional findings. IMPRESSION: 1. No acute findings. Signer Name: Jett Esteban MD Signed: 01/11/2022 10:26 AM Workstation Name: [email or web address]
[2022-01-11 10:44] LABS: Hematocrit 39.5 % (30.3-42.9); Hemoglobin 13.2 gm/dl (10.1-14.3); Mean Platelet Volume 8.8 fl (6-12); Red Blood Count 4.32 M/mm3 (3.65-5.03); Red Cell Distribution Width 13.3 % (13.2-15.2)
[2022-01-11 10:58] LABS: Bacteria,Urine 4+ /HPF (Negative); Mucus,Urine FEW /HPF
[2022-01-11 11:23] LABS: Color,Urine Yellow (Yellow)
[2022-01-11] MEDS ORDERED: cefTRIAXone/NS 1 GM/50 ML 1 GM/50 ML BAG IV ONE (11:42)
--- NOTE | 2022-01-11 11:42 | Emergency Department Report ---
ED General Adult HPI - General Chief complaint: Extremity Injury, Upper Stated complaint: NECK AND SHOULDER PAIN PUI?: No Time Seen by Provider: 01/11/22 09:32 Source: patient Mode of arrival: Ambulatory Limitations: No Limitations - History of Present Illness Severity scale (0 -10): 9 - Related Data Home Medications Medication Instructions Recorded Confirmed Last Taken amLODIPine 25 mg PO QDAY 12/20/21 12/20/21 Unknown Previous Rx's Medication Instructions Recorded Last Taken Type Fluconazole [Diflucan TAB] 100 mg PO QDAY #2 tablet 01/11/22 Unknown Rx Ibuprofen [Motrin] 800 mg PO Q8HR PRN #30 tablet 01/11/22 Unknown Rx Sulfamethoxazole/Trimethoprim 1 each PO BID #10 tablet 01/11/22 Unknown Rx [Bactrim DS TAB] predniSONE [Deltasone] 20 mg PO DAILY #5 tablet 01/11/22 Unknown Rx Allergies Allergy/AdvReac Type Severity Reaction Status Date / Time Penicillins AdvReac Unknown Unknown Verified 01/11/22 07:48 morphine AdvReac Anaphylaxis Verified 01/11/22 07:48 ED Review of Systems ROS: Stated complaint: NECK AND SHOULDER PAIN Other details as noted in HPI Comment: All other systems reviewed and negative ED Past Medical Hx - Past Medical History Previous Medical History?: Yes Hx Hypertension: Yes (SINCE 2012) Hx CVA: No Hx Heart Attack/AMI: No Hx Congestive Heart Failure: No Hx Diabetes: Yes Hx Deep Vein Thrombosis: No Hx Pulmonary Embolism: No Hx GERD: No Hx Liver Disease: No Hx Renal Disease: No Hx Sickle Cell Disease: No Hx Arthritis: Yes (rheumatoid arthritis) Hx Headaches / Migraines: No Hx Seizures: No Hx Kidney Stones: No Hx Psychiatric Treatment: No Hx Asthma: Yes Hx COPD: Yes Hx Tuberculosis: No Hx Dementia: No Hx HIV: No Additional medical history: thyroid?,pt intubated at [facility] 12/21/2016 when they overdosed her on morphine. Chronic lower back pain. Morbid obesity - Surgical History Past Surgical History?: Yes Hx Cholecystectomy: Yes Additional Surgical History: Tube ligation,uterine ablasion - Family History Family history: other (MOM DEC SAH; DAD DEC OLD AGE) - Social History Smoking Status: Former Smoker Substance Use Type: None - Medications Home Medications: Home Medications Medication Instructions Recorded Confirmed Last Taken Type amLODIPine 25 mg PO QDAY 12/20/21 12/20/21 Unknown History Fluconazole [Diflucan TAB] 100 mg PO QDAY #2 tablet 01/11/22 Unknown Rx Ibuprofen [Motrin] 800 mg PO Q8HR PRN #30 tablet 01/11/22 Unknown Rx Sulfamethoxazole/Trimethoprim 1 each PO BID #10 tablet 01/11/22 Unknown Rx [Bactrim DS TAB] predniSONE [Deltasone] 20 mg PO DAILY #5 tablet 01/11/22 Unknown Rx ED Physical Exam - General Limitations: No Limitations General appearance: alert, in no apparent distress - Head Head exam: Present: atraumatic, normocephalic - Eye Eye exam: Present: normal appearance - ENT ENT exam: Present: mucous membranes moist - Neck Neck exam: Present: normal inspection - Respiratory Respiratory exam: Present: normal lung sounds bilaterally. Absent: respiratory distress - Cardiovascular Cardiovascular Exam: Present: regular rate, normal rhythm. Absent: systolic murmur, diastolic murmur, rubs, gallop - GI/Abdominal GI/Abdominal exam: Present: soft, normal bowel sounds - Extremities Exam Extremities exam: Present: normal inspection - Back Exam Back exam: Present: normal inspection - Neurological Exam Neurological exam: Present: alert, oriented X3 - Psychiatric Psychiatric exam: Present: normal affect, normal mood - Skin Skin exam: Present: warm, dry, intact, normal color. Absent: rash ED Course Vital Signs 01/11/22 07:48 Temperature 98.6 F Pulse Rate 112 H Respiratory 22 Rate Blood Pressure 131/79 [Right] O2 Sat by Pulse 95 Oximetry ED Medical Decision Making - Lab Data Result diagrams: 01/11/22 09:54 - EKG Data -: EKG Interpreted by Nm EKG shows normal: sinus rhythm Rate: normal - EKG Data When compared to previous EKG there are: no significant change Interpretation: no acute changes - Radiology Data Radiology results: report reviewed, image reviewed [facility] - Medical Decision Making Labs 01/11/22 01/11/22 01/11/22 09:16 09:54 09:54 WBC 8.6 RBC 4.32 Hgb 13.2 Hct 39.5 MCV 92 MCH 31 MCHC 33 RDW 13.3 Plt Count 270 VBG pH Ketones Quantitative Negative Urine Color Yellow Urine Turbidity Clear Specific [place] (Man) 1.030 Ur Protein (Man) 3+ Ur Ketones (Man) Negative Urine Bilirubin (Man) Negative Urine WBC (Auto) 24.0 H Urine RBC (Auto) 15.0 U Epithel Cells (Auto) 133.0 H Urine Bacteria (Auto) 4+ Urine RBC (Manual) 2+ Urine Mucus Few Urine Yeast (Budding) 3+ 01/11/22 09:54 WBC RBC Hgb Hct MCV MCH MCHC RDW Plt Count VBG pH 7.384 Ketones Quantitative Urine Color Urine Turbidity Specific [place] (Man) Ur Protein (Man) Ur Ketones (Man) Urine Bilirubin (Man) Urine WBC (Auto) Urine RBC (Auto) U Epithel Cells (Auto) Urine Bacteria (Auto) Urine RBC (Manual) Urine Mucus Urine Yeast (Budding) Vital Signs 01/11/22 07:48 Temperature 98.6 F Pulse Rate 112 H Respiratory 22 Rate Blood Pressure 131/79 [Right] O2 Sat by Pulse 95 Oximetry LABS NOTED PT HAS A/C TACHYCARDIA- RECENT CT PE PROTOCOL HERE IN ER A/C PAIN- WITH RA DM II- HYPERGLYCEMIA/OBESE PCP DR SCHULZ REPORTS TAKING INSULIN PEN AND BP MEDS 1L NS/INSULIN IV FOR INC BG - Differential Diagnosis RO ACS/CHRONIC PAIN/URI Critical care attestation.: If time is entered above; I have spent that time in minutes in the direct care of this critically ill patient, excluding procedure time. ED Disposition Clinical Impression: Obesity, Type 2 diabetes mellitus with hyperglycemia, UTI (urinary tract inf ection), Chronic pain, Rheumatoid arthritis Disposition: 01 HOME / SELF CARE / HOMELESS Is pt being admited?: No Does the pt Need Aspirin: No Condition: Stable Instructions: Diabetes Mellitus Type 2 in Adults (ED), Arthritis, [id number] Additional Instructions: CONTINUE HOME MEDS MEDS ORDERED TODAY MONITOR YOUR BLOOD SUGAR DIABETIC DIET STAY WELL HYDRATED WITH WATER FOLLOW UP WITH PCP WILLIAN REFERRAL BELOW Referrals: ALICE BROUSSARD MD [Primary Care Provider] - 3-5 Days Time of Disposition: 12:27
[2022-01-11 12:42] LABS: Alanine Aminotransferase 23 units/L (7-56); Albumin 3.7 g/dL (3.9-5); BUN/Creatinine Ratio 15; Blood Urea Nitrogen 12 mg/dL (7-17); Calcium 9.4 mg/dL (8.4-10.2); Hemolysis Index 13
== END 2022-01-11 13:23 | disposition home or self-care (01) ==
LOC: ED 07:46
DX: N39.0 Urinary tract infection, site not specified (principal); E11.65 Type 2 diabetes mellitus with hyperglycemia; E66.9 Obesity, unspecified; G89.29 Other chronic pain; M06.9 Rheumatoid arthritis, unspecified; I10 Essential (primary) hypertension; E11.9 Type 2 diabetes mellitus without complications; J45.909 Unspecified asthma, uncomplicated; Z90.49 Acquired absence of other specified parts of digestive tract; F17.200 Nicotine dependence, unspecified, uncomplicated; Z88.0 Allergy status to penicillin; Z91.09 Other allergy status, other than to drugs and biological substances; Z79.899 Other long term (current) drug therapy
CPT/HCPCS: 36415; 71046; 80053; 81001; 82010; 82805; 82962; 84484; 85027; 96361; 96365; 96375; 99284; J0696; J7030; Q9967; J1815